=== PATIENT | male | born 1955 | race Caucasian/White ===

== ENCOUNTER 2019-01-07 12:16 | Inpatient (IN) | payer MEDICARE, MEDICAID ==
[~2019-01-07] VITALS: Ht 182.9 cm; Wt 92.5 kg
[~2019-01-07 12:16] MED LIST: KEFLEX500 MG ORAL
--- NOTE | 2019-01-07 12:35 | NUR ---
ED Nurse Note: pt brought by friend and wheelchair assistance provide due to pain on right knee. per pt, "has pain for couple days." pt denies any injury. AAO x4. respirations even and non-labored noted. no open wound noted. will assess more after change to hospital gown. will wait for the further order.
[2019-01-07 13:00] VITALS: BP 134/70
[2019-01-07] MEDS ORDERED: Vancomycin 1.5 GM in NS 275 ML IVPB ONE (13:00)
[2019-01-07] MEDS ORDERED: Cefepime HCl 2 GM in NS 110 ML IV SCH (13:00)
--- NOTE | 2019-01-07 13:00 | NUR ---
ED Nurse Note: will draw the blood after US done.
--- NOTE | 2019-01-07 13:55 | NUR ---
ED Nurse Note: Reports given to DOMENIC Bustillo.
[2019-01-07 14:38] LABS: BASOPHILS % (AUTO) 0.7 % (0.0-2.0); EOSINOPHILS % (AUTO) 0.9 % (0.0-3.0); HEMATOCRIT 35.1 % (42.0-52.0); HEMOGLOBIN 11.9 G/DL (14.2-18.0); LYMPHOCYTES % (AUTO) 16.9 % (20.0-45.0); MEAN CORPUSCULAR VOLUME 89 FL (80-99); MONOCYTES % (AUTO) 10.4 % (1.0-10.0); NEUTROPHILS % (AUTO) 71.2 % (45.0-75.0); PLATELET COUNT 227 K/UL (150-450); RED BLOOD COUNT 3.94 M/UL (4.70-6.10); RED CELL DISTRIBUTION WIDTH 11.7 % (11.6-14.8); WHITE BLOOD COUNT 8.1 K/UL (4.8-10.8)
[2019-01-07 14:50] LABS: ANION GAP 11 mmol/L (5-15); BLOOD UREA NITROGEN 16 mg/dL (7-18); CALCIUM 8.8 MG/DL (8.5-10.1); CARBON DIOXIDE 30 MMOL/L (21-32); CHLORIDE 98 MMOL/L (98-107); CREATININE 1.3 MG/DL (0.55-1.30); SODIUM 139 MMOL/L (136-145)
--- NOTE | 2019-01-07 14:51 | NUR ---
ED Nurse Note: PT NOTED TO BE UNCOOPERATIVE AND STATES HE DOES NOT WANT TO GIVE URINE UNTIL HE GETS SOME WATER TO DRINK. MARKOS ORDERED NPO AND PT WAS INFORMED. MARKOS/PA ALSO OKAY TO GIVE ANTINBIOTICS WITHOUT URINE COLLECTION AT THIS TIME.
[2019-01-07 15:00] VITALS: BP 125/67
[2019-01-07] MEDS ORDERED: Ketorolac 30mg Inj IV ONE (15:00)
[2019-01-07 15:04] LABS: ALANINE AMINOTRANSFERASE 28 U/L (12-78); ALBUMIN 2.8 G/DL (3.4-5.0); ALBUMIN/GLOBULIN RATIO 0.6 (1.0-2.7); ALKALINE PHOSPHATASE 97 U/L (46-116); ASPARTATE AMINO TRANSFERASE 23 U/L (15-37); BILIRUBIN,TOTAL 0.9 MG/DL (0.2-1.0); CKMB 2.4 NG/ML (0.0-3.6); CREATINE KINASE 145 U/L (26-308)
--- NOTE | 2019-01-07 15:11 | Emergency Room Report ---
History of Present Illness General Chief Complaint: Lower Extremity Injury Source: Medical Record (Yadira Tamayo) Present Illness HPI 63-year-old male with history of HIV positive, diabetes, and methamphetamine abuse via IV here complaining of a 10 out of 10 right lower extremity pain that started after injection of IV meth this morning. Bilateral lower extremities have several track duke and abscess formation. Scant amount of cellulitis is noted by laterally and lower extremities. Patient is rating pain 10 out of 10 without radiation. Pulse is 2+ bilaterally. Denies tingling and numbness. Denies fall or injury. Denies chest pain, shortness of breath, palpitation, abdominal pain, nausea vomiting. Has not taken medication for pain. Patient does not appear to be compliant with medication for HIV as well as diabetes. (Yadira Tamayo) Allergies: Coded Allergies: No Known Allergies (Unverified , 03/27/14) Patient History Past Medical History: see triage record Past Surgical History: unable to obtain Pertinent Family History: none Social History: Reports: drug use - meth, intravenous Immunizations: UTD Reviewed Nursing Documentation: PMH: Agreed; PSxH: Agreed (Yadira Tamayo) Nursing Documentation-PMH Past Medical History: No History, Except For Hx Diabetes: Yes Hx Gastrointestinal Problems: No - HEP-C HIV (Yadira Tamayo) Review of Systems All Other Systems: negative except mentioned in HPI (Yadira Tamayo) Physical Exam Vital Signs Date Time Temp Pulse Resp B/P (MAP) Pulse Ox O2 Delivery O2 Flow Rate FiO2 01/07/19 12:26 99.1 108 18 119/71 (87) 95 Room Air Sp02 EP Interpretation: reviewed, abnormal General Appearance: no apparent distress, alert, GCS 15, non-toxic Head: normocephalic, atraumatic Eyes: bilateral eye normal inspection, bilateral eye PERRL ENT: hearing grossly normal, normal pharynx, no angioedema, normal voice Neck: full range of motion, supple/symm/no masses Respiratory: normal inspection, chest non-tender, lungs clear, normal breath sounds, no rhonchi, no respiratory distress, no wheezing, respiratory distress Cardiovascular #1: regular rate, rhythm, no edema, no JVD, no murmur, normal capillary refill Cardiovascular #2: 2+ dorsalis pedis (R), 2+ dorsalis pedis (L) Gastrointestinal: non tender, soft Genitourinary: no CVA tenderness Musculoskeletal: back normal, no calf tenderness, pelvis stable, swelling - Bilateral lower extremities with several abscess formation secondary to track duke Psychiatric: normal inspection, judgement/insight normal Skin: other - cellulitis Bilateral lower extremities, track duke, abscess formation Lymphatic: normal inspection, no adenopathy (Yadira Tamayo) Procedures Critical Care Time Critical Care Time Total critical care time: Approximately 31 minutes Due to a high probability of clinically significant, life threatening deterioration, the patient required the highest level of preparedness to intervene emergently and I personally spent this critical care time directly and personally managing the patient. This critical care time included obtaining a history, examining the patient, pulse oximetry, ordering and reviewing studies , ordering treatments, evaluating response to treatment and updating management plan as needed, frequent reassessment and discussion with other providers as well as arranging for ultimate disposition. This critical to care time was performed to assess and manage the high probability of life-threatening deterioration that could result in multiorgan failure. This critical care time is separate from the separately billable procedures and treating other patients. (Jimmy Rodríguez MD) Medical Decision Making PA Attestation All my diagnosis and treatment plans were reviewed ad discussed with my supervising physician Dr. Perkins (Yadira Tamayo) PA Attestation I participated in over saw the care of this patient along with CHANG Albarran Briefly, this is 63-year-old male with history of HIV, diabetes, IV drug abuse noncompliant with all medication presented for lower extremity pain and swelling. He is found to have a significant cellulitis with an elevated lactate and is receiving sepsis level fluids as well as antibiotics. Patient remains tachycardic though improving with IV fluids. Tetanus was updated for retained foreign body in the right lower extremity. He will be admitted to the telemetry service for further management. (Jimmy Rodríguez MD) Diagnostic Impression: Primary Impression: Sepsis Additional Impressions: Cellulitis Hyperglycemia Retained foreign body ER Course 63-year-old male with history of HIV positive, diabetes, and methamphetamine abuse via IV here complaining of a 10 out of 10 right lower extremity pain that started after injection of IV meth this morning. Bilateral lower extremities have several track duke and abscess formation. Scant amount of cellulitis is noted by laterally and lower extremities. Patient is rating pain 10 out of 10 without radiation. Pulse is 2+ bilaterally. Denies tingling and numbness. Denies fall or injury. Denies chest pain, shortness of breath, palpitation, abdominal pain, nausea vomiting. Has not taken medication for pain. Patient does not appear to be compliant with medication for HIV as well as diabetes. Ddx considered but are not limited to : Cellulitis, DVT, superficial infection, abscess, sepsis Vital signs: are WNL, pt. is afebrile H&PE are most consistent with: Sepsis, cellulitis ORDERS: Sepsis order set, venous duplex, x-ray of lower extremities ED INTERVENTIONS: Cefepime, Bactrim, vancomycin, NS bolus, Toradol Patient was admitted with diagnosis of sepsis, cellulitis to Dr. Chaudhary under supervision of : Mari pt stable at time of admission (Yadira Tamayo) EKG Diagnostic Results Rate: tachycardiac Rhythm: other ST Segments: no acute changes Other Impression No acute ST changes (Yadira Tamayo) Chest X-Ray Diagnostic Results Chest X-Ray Diagnostic Results : Chest X-Ray Ordered: Yes # of Views/Limited/Complete: 1 View Indication: Other EP Interpretation: Yes PA Xray: Interpretation reviewed, by supervising , and agrees with findings. Interpretation: other - Consolidation noted bilaterally Impression: Other - Consolidation noted bilaterally Electronically Signed by: Yadira Gallagher PA-C (Yadira Tamayo) Other X-Ray Diagnostic Results Other X-Ray Diagnostic Results #1: X-Ray ordered: Left tib-fib # of Views/Limited Vs Complete: 3 View Indication: Pain EP Interpretation: Yes PA Xray: Interpretation reviewed, by supervising MD, and agrees with findings. Interpretation: no dislocation, no soft tissue swelling, no fractures, other - Foreign body noted Impression: Other - Foreign body noted Electronically Signed by: Yadira Gallagher PA-C Other X-Ray Diagnostic Results #2: X-Ray ordered: Right tib-fib # of Views/Limited Vs Complete: 3 View Indication: Pain EP Interpretation: Yes PA Xray: Interpretation reviewed, by supervising MD, and agrees with findings. Interpretation: no dislocation, no soft tissue swelling, no fractures, other - fb Impression: Other - fb Electronically Signed by: Yadira Gallagher PA-C Other X-Ray Diagnostic Results #3: X-Ray ordered: Left foot # of Views/Limited Vs Complete: 3 View Indication: Pain EP Interpretation: Yes PA Xray: Interpretation reviewed, by supervising MD, and agrees with findings. Interpretation: no dislocation, no soft tissue swelling, no fractures Impression: No acute disease Electronically Signed by: Yadira Gallagher PA-C Other X-Ray Diagnostic Results #4: X-Ray ordered: Right foot # of Views/Limited Vs Complete: 3 View Indication: Pain EP Interpretation: Yes PA Xray: Interpretation reviewed, by supervising MD, and agrees with findings. Interpretation: no dislocation, no soft tissue swelling, no fractures Impression: No acute disease Electronically Signed by: Yadira Gallagher PA-C (Yadira Tamayo) CT/MRI/US Diagnostic Results CT/MRI/US Diagnostic Results #1: Imaging Test Ordered: Venous duplex right lower extremity Impression Negative for DVT CT/MRI/US Diagnostic Results #2: Imaging Test Ordered: Venous duplex left lower extremity Impression Negative for DVT (Yadira Tamyao) Last Vital Signs Date Time Temp Pulse Resp B/P (MAP) Pulse Ox O2 Delivery O2 Flow Rate FiO2 01/07/19 12:26 99.1 108 18 119/71 (87) 95 Room Air (Yadira Tamayo) Disposition: ADMITTED INPATIENT Condition: Serious Referrals: NON PHYSICIAN (PCP) Yadira Tamayo Jan 07, 2019 15:11 Jimmy Rodríguez MD Jan 07, 2019 16:09
[2019-01-07] MEDS ORDERED: Trimethoprim/Sulfamethoxazole 20 ML in D5W 500ml 550 ML IV ONE ×2 (15:15→17:45)
--- NOTE | 2019-01-07 15:28 | Diagnostic Imaging Report ---
Indication: Bilateral leg pain Technique: Grayscale and duplex images of the bilateral lower extremity veins Comparison: none Findings: Bilaterally, grayscale and duplex images demonstrate no evidence of intraluminal thrombus. Normal phasic Doppler waveforms, demonstrating normal augmentation response common no evidence of valvular insufficiency. Normal compressibility. Impression: Negative for evidence of lower extremity deep venous thrombosis
--- NOTE | 2019-01-07 15:31 | Diagnostic Imaging Report ---
Indication: Leg pain Technique: 2 views of the left tibia and fibula Comparison: none Findings: 12 x 3 mm irregular opacity projects in the the posterior soft tissues of the distal leg. There are vascular calcifications. There are no acute fractures. Impression: Posterior soft tissue opacity, most likely a focus of dystrophic calcification, less likely a small foreign body No other significant abnormality
--- NOTE | 2019-01-07 15:32 | Diagnostic Imaging Report ---
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 No acute fractures. No dislocations. The joint spaces are preserved. There is mild pes cavus. Small calcaneal spur noted. Impression: No acute bony trauma
--- NOTE | 2019-01-07 15:33 | Diagnostic Imaging Report ---
Indication: Trauma, right knee pain Technique: 3 views of the right knee Comparison: None Findings: No definite suprapatellar effusion. No acute fractures. No dislocations. Joint spaces are preserved Impression: Negative
--- NOTE | 2019-01-07 15:36 | Diagnostic Imaging Report ---
Indication: Right lower leg pain Technique: 2 views of the right tibia and fibula Comparison: none Findings: Linear metallic foreign body projects in the superficial subcutaneous fat of the lateral calf. No acute fractures. No dislocations. No soft tissue gas Impression: Metallic foreign body in the lateral superficial soft tissues No acute bony trauma Findings discussed by phone with nurse practitioner Yadira in the emergency room at the time of interpretation
--- NOTE | 2019-01-07 15:38 | Diagnostic Imaging Report ---
Indication: Right foot pain Technique: 3 views right foot Comparison: none Findings: No acute fractures. No dislocations. The joint spaces are preserved. No radiopaque foreign body. No definite soft tissue gas. There are vascular calcifications Impression: No acute process
[2019-01-07] MEDS ORDERED: Tetanus/Diptheria/Pertussis IM ONE (16:15)
--- NOTE | 2019-01-07 16:25 | Diagnostic Imaging Report ---
Indication: Chest pain Technique: One view of the chest Comparison: none Findings: Is right perihilar atelectasis. Lungs and pleural spaces are otherwise clear. The heart size is normal. No significant interim change Impression: No acute process
[2019-01-07 17:00] VITALS: BP 106/75
[2019-01-07] MEDS ORDERED: Sodium Chloride 2,800 ML IVLG ONE (17:00)
--- NOTE | 2019-01-07 17:27 | NUR ---
ED Nurse Note: REPEAT LACTIC ACID SPECIMEN SENT.
--- NOTE | 2019-01-07 18:25 | NUR ---
ED Nurse Note: COLLECTED URINE THEN SENT.
[2019-01-07 18:49] LABS: APPEARANCE,URINE CLEAR; BILIRUBIN, URINE NEGATIVE (NEGATIVE); GLUCOSE, URINE (UA) 4+ (NEGATIVE); KETONES,URINE 1+ (NEGATIVE); LEUKOCYTE ESTERASE ,URINE NEGATIVE (NEGATIVE); NITRITE,URINE NEGATIVE (NEGATIVE); PH,URINE 6 (4.5-8.0); PROTEIN,URINE 3+ (NEGATIVE); UROBILINOGEN,URINE 4 MG/DL (0.0-1.0)
[2019-01-07 18:50] LABS: COLOR,URINE YELLOW
--- NOTE | 2019-01-07 19:02 | NUR ---
HAND-OFF: Report given to PRIETO SHETH.
--- NOTE | 2019-01-07 19:12 | NUR ---
ED Nurse Note: pt was brought up to tele rm 216 accompanied by RN and supervisor pyrotechnic loading with monitor box via [employer] in stable condition. IV site is intact. Report was given to DOMENIC Li. inventory signed off
--- NOTE | 2019-01-07 19:15 | NUR ---
NURSE NOTES: Received pt from ED via gurney. Pt transferred to [facility] without any incident. Pt is A/Ox3. [place] pt to room, unit, and hospital policies. Received report from DOMENIC Li. addictions counselor is in placed, IV site intact, asymptomatic, and patent. Bed is in the lowest position and locked. Call light within reach. Belongings list checked and accounted for. No signs/symptoms of acute distress noted at this time. Will contact Dr. Chaudhary for orders.
--- NOTE | 2019-01-07 19:57 | NUR ---
NURSE NOTES: Received orders from Dr. Mcintosh. Will note and carry out.
[2019-01-07 20:00] VITALS: BP 115/69
[2019-01-07] MEDS ORDERED: Miralax 17gm pkt ORAL PRN (20:00)
[2019-01-07] MEDS ORDERED: Albuterol/Ipratropium 3ml neb HHN PRN (20:00)
[2019-01-07] MEDS ORDERED: Nitroglycerin Subl 0.4mg tab SL PRN (20:00)
[2019-01-07] MEDS ORDERED: Morphine Sulfate 2mg/ml Inj(IV/IM USE ONLY) IVP PRN (20:00)
--- NOTE | 2019-01-07 20:10 | NUR ---
NURSE NOTES: Cancelled venous duplex scan for bilateral lower extremities ordered by Dr. Mcintosh. Vascular director geophysical laboratory confirmed that scan has already been done. Negative for DVT in lower extremities. Results in pt's chart.
[2019-01-07] MEDS: Heparin 5000 units/ml inj SUBQ SCH (21:45)
--- NOTE | 2019-01-07 22:35 | NUR ---
NURSE NOTES: Pt refused to be swab for VRE, CRE, and MRSA at this time. Pt said possibly tomorrow after breakfast. Will endorse to dayshift RN.
[2019-01-08] VITALS: BP 110/70
[2019-01-08] MEDS: Cefepime HCl 2 GM in D5W 110 ML IV SCH ×2 (03:25→15:57)
[2019-01-08 04:00] VITALS: BP 119/86
[2019-01-08] MEDS: Vancomycin 1 GM in D5W 275 ML IVPB SCH ×2 (04:46→16:44)
[2019-01-08 06:50] LABS: BASOPHILS % (AUTO) 0.7 % (0.0-2.0); EOSINOPHILS % (AUTO) 3.7 % (0.0-3.0); HEMATOCRIT 32.9 % (42.0-52.0); HEMOGLOBIN 11.3 G/DL (14.2-18.0); LYMPHOCYTES % (AUTO) 13.5 % (20.0-45.0); MEAN CORPUSCULAR VOLUME 89 FL (80-99); MONOCYTES % (AUTO) 8.7 % (1.0-10.0); NEUTROPHILS % (AUTO) 73.5 % (45.0-75.0); PLATELET COUNT 184 K/UL (150-450); RED CELL DISTRIBUTION WIDTH 11.8 % (11.6-14.8); WHITE BLOOD COUNT 4.5 K/UL (4.8-10.8)
--- NOTE | 2019-01-08 07:04 | NUR ---
NURSE NOTES: Informed Dr. Mcintosh that pt is diabetic and asked for a toxicology screening on pt.
--- NOTE | 2019-01-08 07:15 | NUR ---
NURSE NOTES: Pt is AAOx3. Patient is cooperative. patient is breathing even and unlabored on room air. monitoring specialist is placed. IV site intact, asymptomatic, and patent. Bed is in the lowest position and locked. Call light within reach. No signs/symptoms of acute distress noted at this time. Will continue plan of care.
--- NOTE | 2019-01-08 07:15 | NUR ---
NURSE NOTES: Received orders for toxicology and Novolog sliding scale. Will note and carry out.
[2019-01-08 07:25] LABS: ALANINE AMINOTRANSFERASE 20 U/L (12-78); ALBUMIN 2.2 G/DL (3.4-5.0); ALBUMIN/GLOBULIN RATIO 0.5 (1.0-2.7); ALKALINE PHOSPHATASE 87 U/L (46-116); ANION GAP 3 mmol/L (5-15); ASPARTATE AMINO TRANSFERASE 20 U/L (15-37); BILIRUBIN,TOTAL 0.7 MG/DL (0.2-1.0); BLOOD UREA NITROGEN 11 mg/dL (7-18); CARBON DIOXIDE 29 MMOL/L (21-32); CHLORIDE 102 MMOL/L (98-107); CREATININE 1.1 MG/DL (0.55-1.30); POTASSIUM 3.7 MMOL/L (3.5-5.1); SODIUM 134 MMOL/L (136-145)
--- NOTE | 2019-01-08 07:54 | NUR ---
HAND-OFF: Report given to DOMENIC Carvalho. Plan of care endorsed.
[2019-01-08 08:00] VITALS: BP 137/72
[2019-01-08] MEDS: Heparin 5000 units/ml inj SUBQ SCH ×2 (08:39→20:39)
--- NOTE | 2019-01-08 10:30 | NUR ---
NURSE NOTES: Patient was concerned about a missing phone. Made attempt to look through belonging checklist and patient's belongings. No mention of cellphone in checklist and no cellphone found in patient belonging. Spoke with ER charge nurse and security regarding missing phone. None were found. Patient states he wants to speak with the charge nurse. Charge nurse was unavailable at the time. Notified Anastasiia, nursing supervisor painting shipyard.
--- NOTE | 2019-01-08 11:13 | NUR ---
CASE MANAGEMENT:REVIEW 63 YR OLD MALE PRESENTED TO ER BY FRIEND CC;RT KNEE PAIN X2 DAYS SI: SEPSIS. CELLULITIS. HYPERGLYCEMIA RETAINED FOREIGN BODY 99.1 108 18 119/71 95% ON RA GLUCOSE+336 URINE(+) AMPHETAMINES IS: IV VANCOMYCIN IV CEFEPIME 1L NS BOLUS XRAY BOTH RT AND LT LEG AND FOOT CXR VENOUS DUPLEX : TO TELEMETRY UNIT DCP; FROM HOME
--- NOTE | 2019-01-08 11:16 | NUR ---
Social Work This Sw received a Sw notification to see patient. This SW met with patient who automatically started yelling upon approach "I want my cell phone...they lost my cell phone!" Patient explains he had also lost his cell phone at [facility] and two at [facility]. It is questionable whether patient is a good historian regarding his phone. Patient explains he lives alone in an apartment who two flights of steps. Patient explains he was walking to the bus, when his knee "gave out" and he was not able to walk. Patient explains his friends picked him and transported him to the hospital. Pending progress with P.T and nursing at this time. Patient appears to show labile mood: angry, then calm and appropriate. Patient admits to anxiety and depression, currently taking Wellbutrin. Psych consult recommended, the nurse will obtain orders for Psych to see. Patient explains he has a psychiatrist in [place] (with Dr. Luu: [phone] [place] [address]). Patient explains he does not have any family to assist after discharge. Patient reiterating about loosing his phone, while he also explains he wants more information why he cannot use his knee. Pending progress; patient does not have any DME at home. SW to follow as needed.
--- NOTE | 2019-01-08 11:39 | NUR ---
NURSING LOCAL AREA NETWORK ADMINISTRATOR NOTE: Patient requested to speak to the Nursing Digital Asset Manager regarding a lost cell phone. Spoke to patient at bedside and he stated "someone stole my I-Phone last night". I asked patient when the last time he remembered seeing his phone and he replied "In ER last night". Patient describes the phone as a "I-Phone 6". Patient started yelling, "Dammit! How could anyone steal a phone from someone helpless, with no money to buy another one?" I offered to look through his belongings bags at bedside and he agreed to let me do so. A cell phone was not located, but a pack of cigarettes and career resource specialist was found. Patient also had a wallet with over $200. I had Charge Nurse Guillermo come to patient room and we told him together that he would be assuming responsibility for his jamison if he doesn't want us to secure it in the safe. Patient refused to let us removed his cigarette and career resource specialist. Stated "I won't smoke". Advised patient that a cell phone is not listed on his belongings inventory list. Advised patient that I will contact ER to see if his phone was left there. I spoke to Charge Nurse Amalia in ER and she stated there was no cell phone left in ER. Guillermo, Charge Nurse today, admitted patient yesterday, and states there was no phone in his belongings. Notified Security about missing phone and cigarettes/career resource specialist.
--- NOTE | 2019-01-08 11:41 | Consultation ---
History of Present Illness General Date patient seen: Jan 08, 2019 Chief Complaint: Lower Extremity Injury Present Illness HPI 63-year-old male with history of HIV, diabetes, methamphetamine abuse via IV presented to ER complaining of a 10 out of 10 right lower extremity pain that started after injection of IV meth this morning. Bilateral lower extremities have several track duke and abscess formation. Pt was tachycardic in ER and is admitted to telemetry. He is c/o of pain in knees, wants to smoke and is agitated about loosing his cell phone Allergies: Coded Allergies: No Known Allergies (Unverified , 03/27/14) Medication History No Active Prescriptions or Reported Meds Patient History Healthcare decision maker Resuscitation status Full Code Advanced Directive on File Past Medical/Surgical History Past Medical/Surgical History: (1) HIV (human immunodeficiency virus infection) (2) Diabetes mellitus (3) Noncompliance Review of Systems All Other Systems: negative except mentioned in HPI Physical Exam General Appearance: WD/WN Lines, tubes and drains: peripheral HEENT: normocephalic, atraumatic Neck: non-tender, normal alignment Respiratory/Chest: chest wall non-tender, lungs clear Cardiovascular/Chest: normal peripheral pulses, normal rate Abdomen: normal bowel sounds, non tender Extremities: normal range of motion Last 24 Hour Vital Signs Date Time Temp Pulse Resp B/P (MAP) Pulse Ox O2 Delivery O2 Flow Rate FiO2 01/08/19 09:36 98 22 95 Room Air 21 01/08/19 09:04 98.1 01/08/19 08:00 96.7 80 19 137/72 (93) 96 01/08/19 04:00 98.1 97 19 119/86 (97) 96 01/08/19 04:00 92 01/08/19 00:00 96 01/08/19 00:00 98.2 100 20 110/70 (83) 95 01/07/19 20:00 98.2 94 22 115/69 (84) 97 01/07/19 20:00 116 01/07/19 19:12 98.0 84 19 132/84 97 Room Air 01/07/19 19:00 Room Air 01/07/19 17:00 99.1 135 20 106/75 100 Room Air 01/07/19 15:28 99.1 01/07/19 15:00 98.9 120 16 125/67 98 Room Air 01/07/19 13:00 99.1 128 15 134/70 99 Room Air 01/07/19 12:26 99.1 108 18 119/71 (87) 95 Room Air Intake and Output 01/07/19 01/08/19 19:00 07:00 Intake Total 2137.5 ml 0 ml Output Total 200 ml Balance 2137.5 ml -200 ml Intake Oral 0 ml 0 ml IV Total 2137.5 ml Output Urine Total 200 ml Laboratory Tests Test 01/07/19 14:15 01/07/19 17:15 01/07/19 18:15 01/08/19 06:30 White Blood Count 8.1 K/UL (4.8-10.8) 4.5 K/UL (4.8-10.8) L Red Blood Count 3.94 M/UL (4.70-6.10) L 3.70 M/UL (4.70-6.10) L Hemoglobin 11.9 G/DL (14.2-18.0) L 11.3 G/DL (14.2-18.0) L Hematocrit 35.1 % (42.0-52.0) L 32.9 % (42.0-52.0) L Mean Corpuscular Volume 89 FL (80-99) 89 FL (80-99) Mean Corpuscular Hemoglobin 30.3 PG (27.0-31.0) 30.6 PG (27.0-31.0) Mean Corpuscular Hemoglobin Concent 34.0 G/DL (32.0-36.0) 34.4 G/DL (32.0-36.0) Red Cell Distribution Width 11.7 % (11.6-14.8) 11.8 % (11.6-14.8) Platelet Count 227 K/UL (150-450) 184 K/UL (150-450) Mean Platelet Volume 5.0 FL (6.5-10.1) L 4.9 FL (6.5-10.1) L Neutrophils (%) (Auto) 71.2 % (45.0-75.0) 73.5 % (45.0-75.0) Lymphocytes (%) (Auto) 16.9 % (20.0-45.0) L 13.5 % (20.0-45.0) L Monocytes (%) (Auto) 10.4 % (1.0-10.0) H 8.7 % (1.0-10.0) Eosinophils (%) (Auto) 0.9 % (0.0-3.0) 3.7 % (0.0-3.0) H Basophils (%) (Auto) 0.7 % (0.0-2.0) 0.7 % (0.0-2.0) Prothrombin Time 10.8 SEC (9.30-11.50) Prothromb Time International Ratio 1.0 (0.9-1.1) Activated Partial Thromboplast Time 29 SEC (23-33) Sodium Level 139 MMOL/L (136-145) 134 MMOL/L (136-145) L Potassium Level 4.0 MMOL/L (3.5-5.1) 3.7 MMOL/L (3.5-5.1) Chloride Level 98 MMOL/L (98-107) 102 MMOL/L (98-107) Carbon Dioxide Level 30 MMOL/L (21-32) 29 MMOL/L (21-32) Anion Gap 11 mmol/L (5-15) 3 mmol/L (5-15) L Blood Urea Nitrogen 16 mg/dL (7-18) 11 mg/dL (7-18) Creatinine 1.3 MG/DL (0.55-1.30) 1.1 MG/DL (0.55-1.30) Estimat Glomerular Filtration Rate 56.1 mL/min (>60) > 60 mL/min (>60) Glucose Level 336 MG/DL (74-106) H 283 MG/DL (74-106) H Lactic Acid Level 3.90 mmol/L (0.4-2.0) H 1.20 mmol/L (0.66-2.22) Calcium Level 8.8 MG/DL (8.5-10.1) 8.0 MG/DL (8.5-10.1) L Total Bilirubin 0.9 MG/DL (0.2-1.0) 0.7 MG/DL (0.2-1.0) Aspartate Amino Transf (AST/SGOT) 23 U/L (15-37) 20 U/L (15-37) Alanine Aminotransferase (ALT/SGPT) 28 U/L (12-78) 20 U/L (12-78) Alkaline Phosphatase 97 U/L (46-116) 87 U/L (46-116) Total Creatine Kinase 145 U/L (26-308) Creatine Kinase MB 2.4 NG/ML (0.0-3.6) Creatine Kinase MB Relative Index 1.6 Troponin I 0.000 ng/mL (0.000-0.056) Pro-B-Type Natriuretic Peptide 306 pg/mL (0-125) H Total Protein 7.3 G/DL (6.4-8.2) 6.4 G/DL (6.4-8.2) Albumin 2.8 G/DL (3.4-5.0) L 2.2 G/DL (3.4-5.0) L Globulin 4.5 g/dL 4.2 g/dL Albumin/Globulin Ratio 0.6 (1.0-2.7) L 0.5 (1.0-2.7) L Urine Color Yellow Urine Appearance Clear Urine pH 6 (4.5-8.0) Urine Specific Ideal 1.015 (1.005-1.035) Urine Protein 3+ (NEGATIVE) H Urine Glucose (UA) 4+ (NEGATIVE) H Urine Ketones 1+ (NEGATIVE) H Urine Blood 1+ (NEGATIVE) H Urine Nitrite Negative (NEGATIVE) Urine Bilirubin Negative (NEGATIVE) Urine Urobilinogen 4 MG/DL (0.0-1.0) H Urine Leukocyte Esterase Negative (NEGATIVE) Urine RBC 0-2 /HPF (0 - 0) H Urine WBC 0-2 /HPF (0 - 0) Urine Squamous Epithelial Cells None /LPF (NONE/OCC) Urine Bacteria None /HPF (NONE) Test 01/08/19 08:40 Urine Opiates Screen Negative (NEGATIVE) Urine Barbiturates Screen Negative (NEGATIVE) Phencyclidine (PCP) Screen Negative (NEGATIVE) Urine Amphetamines Screen Positive (NEGATIVE) H Urine Benzodiazepines Screen Negative (NEGATIVE) Urine Cocaine Screen Negative (NEGATIVE) Urine Marijuana (THC) Screen Negative (NEGATIVE) Height (Feet): 6 Height (Inches): 0.00 Weight (Pounds): 205 Medications Current Medications Medications (Trade) Dose Ordered Sig/Naheed Route PRN Reason Start Time Stop Time Status Last Admin Dose Admin Acetaminophen (Tylenol) 650 mg Q4H PRN ORAL fever 01/07/19 20:00 02/06/19 19:59 Albuterol/ Ipratropium (Albuterol/ Ipratropium) 3 ml Q4H PRN HHN Shortness of Breath 01/07/19 20:00 01/12/19 19:59 Cefepime HCl 2 gm/ Dextrose 110 ml @ 220 mls/hr Q12HR@0300,1500 IV 01/08/19 03:00 01/15/19 02:59 01/08/19 03:25 Dextrose (Dextrose 50%) 25 ml Q30M PRN IV Hypoglycemia 01/07/19 20:00 02/06/19 19:59 Dextrose (Dextrose 50%) 50 ml Q30M PRN IV Hypoglycemia 01/07/19 20:00 02/06/19 19:59 Heparin Sodium (Porcine) (Heparin 5000 units/ml) 5,000 units EVERY 12 HOURS SUBQ 01/07/19 21:00 02/06/19 20:59 01/08/19 08:39 Insulin Aspart (NovoLOG) BEFORE MEALS AND HS SUBQ 01/08/19 11:30 02/07/19 11:29 Morphine Sulfate (Morphine Sulfate) 4 mg Q4H PRN IVP Moderate Pain (Pain Scale 4-6) 01/08/19 12:00 01/14/19 19:59 Nitroglycerin (Ntg) 0.4 mg Q5M PRN SL Prn Chest Pain 01/07/19 20:00 02/06/19 19:59 Ondansetron HCl (Zofran) 4 mg Q6H PRN IVP Nausea & Vomiting 01/07/19 20:00 02/06/19 19:59 Polyethylene Glycol (Miralax) 17 gm DAILYPRN PRN ORAL Constipation 01/07/19 20:00 02/06/19 19:59 Quetiapine Fumarate (SEROquel) 50 mg Q12HR ORAL 01/08/19 11:30 02/07/19 11:29 Temazepam (Restoril) 15 mg HSPRN PRN ORAL Insomnia 01/07/19 20:00 01/14/19 19:59 Vancomycin HCl (Vanco rx to dose) 1 ea DAILY PRN MISC . 01/07/19 20:15 02/06/19 20:14 Vancomycin HCl 1 gm/Dextrose 275 ml @ 183.3 mls/ hr Q12HR@0400,1600 IVPB 01/08/19 04:00 01/13/19 03:59 01/08/19 04:46 Assessment/Plan Problem List: (1) Phlebitis ICD Codes: I80.9 - Phlebitisand thrombophlebitis of unspecified site SNOMED: 76805501 (2) Cellulitis ICD Codes: L03.90 - Cellulitis, unspecified SNOMED: 184028927 (3) Noncompliance ICD Codes: Z91.19 - Patient's noncompliance with other medical treatment and regimen SNOMED: 2446062 (4) HIV (human immunodeficiency virus infection) ICD Codes: B20 - Human immunodeficiency virus [HIV] disease SNOMED: 08126789 (5) Diabetes mellitus ICD Codes: E11.9 - Type 2 diabetes mellitus without complications SNOMED: 32769987 (6) Substance abuse ICD Codes: F19.10 - Other psychoactive substance abuse, uncomplicated SNOMED: 65321152 (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
[2019-01-08 12:00] VITALS: BP 138/82
[2019-01-08] MEDS: NovoLOG Insulin Flexpen SUBQ SCH ×3 (12:46→20:40)
[2019-01-08] MEDS: Morphine Sulfate 4mg/ml Inj (IV USE ONLY) IVP PRN ×3 (12:59→20:49)
--- NOTE | 2019-01-08 15:16 | History & Physical ---
History and Physical History & Physicial Jonathon Chaudhary MD Jan 08, 2019 15:16
[2019-01-08 16:00] VITALS: BP 119/81
--- NOTE | 2019-01-08 19:10 | NUR ---
HAND-OFF: Report given to DOMENIC Salguero.
--- NOTE | 2019-01-08 19:11 | NUR ---
NURSE NOTES: Got report from Deven SHETH. Pt in stable condition. Denies any pain. No s/s of distress or discomfort noted. Pt resting in bed comfortably. Bed in low and locked position, call light within reach bedside table within reach. Continue to monitor.
--- NOTE | 2019-01-08 19:20 | Consultation ---
History of Present Illness General Date patient seen: Jan 08, 2019 Chief Complaint: Lower Extremity Injury Present Illness HPI 63 y/o M with hx of HIV, Dm2, Hep C, IVDA (meth abuse) presented to ED on 01/07 RLE pain that started after IV injection of meth the day of admission. In the ED patient was tachycardic and was admitted to telemetry. He also complains of knee pain. RLE pain described as 10/10, no radiating. Denied CP, SOB, abd pain, n/v. Allergies: Coded Allergies: No Known Allergies (Unverified , 03/27/14) Medication History No Active Prescriptions or Reported Meds Patient History Healthcare decision maker Resuscitation status Full Code Advanced Directive on File Patient History Narrative Pmhx: as above Shx: reviewed Fhx: non contributory Review of Systems All Other Systems: negative except mentioned in HPI Physical Exam Physical Exam Narrative General Appearance: WD/WN Lines, tubes and drains: peripheral HEENT: normocephalic, atraumatic Neck: non-tender, normal alignment Respiratory/Chest: chest wall non-tender, lungs clear Cardiovascular/Chest: normal peripheral pulses, normal rate Abdomen: normal bowel sounds, non tender Extremities: normal range of motion Last 24 Hour Vital Signs Date Time Temp Pulse Resp B/P (MAP) Pulse Ox O2 Delivery O2 Flow Rate FiO2 01/08/19 17:23 98.6 01/08/19 16:00 98.6 86 20 119/81 (94) 94 01/08/19 15:48 100 01/08/19 13:27 Room Air 01/08/19 12:00 97.8 76 20 138/82 (100) 94 01/08/19 11:28 106 01/08/19 09:36 98 22 95 Room Air 21 01/08/19 09:04 98.1 01/08/19 09:00 Room Air 01/08/19 08:14 98 01/08/19 08:00 96.7 80 19 137/72 (93) 96 01/08/19 04:00 98.1 97 19 119/86 (97) 96 01/08/19 04:00 92 01/08/19 00:00 96 01/08/19 00:00 98.2 100 20 110/70 (83) 95 01/07/19 20:00 98.2 94 22 115/69 (84) 97 01/07/19 20:00 116 01/07/19 19:12 98.0 84 19 132/84 97 Room Air Intake and Output 01/07/19 01/08/19 18:59 06:59 Intake Total 2137.5 ml 0 ml Output Total 200 ml Balance 2137.5 ml -200 ml Intake Oral 0 ml 0 ml IV Total 2137.5 ml Output Urine Total 200 ml Laboratory Tests Test 01/08/19 06:30 01/08/19 08:40 White Blood Count 4.5 K/UL (4.8-10.8) L Red Blood Count 3.70 M/UL (4.70-6.10) L Hemoglobin 11.3 G/DL (14.2-18.0) L Hematocrit 32.9 % (42.0-52.0) L Mean Corpuscular Volume 89 FL (80-99) Mean Corpuscular Hemoglobin 30.6 PG (27.0-31.0) Mean Corpuscular Hemoglobin Concent 34.4 G/DL (32.0-36.0) Red Cell Distribution Width 11.8 % (11.6-14.8) Platelet Count 184 K/UL (150-450) Mean Platelet Volume 4.9 FL (6.5-10.1) L Neutrophils (%) (Auto) 73.5 % (45.0-75.0) Lymphocytes (%) (Auto) 13.5 % (20.0-45.0) L Monocytes (%) (Auto) 8.7 % (1.0-10.0) Eosinophils (%) (Auto) 3.7 % (0.0-3.0) H Basophils (%) (Auto) 0.7 % (0.0-2.0) Sodium Level 134 MMOL/L (136-145) L Potassium Level 3.7 MMOL/L (3.5-5.1) Chloride Level 102 MMOL/L (98-107) Carbon Dioxide Level 29 MMOL/L (21-32) Anion Gap 3 mmol/L (5-15) L Blood Urea Nitrogen 11 mg/dL (7-18) Creatinine 1.1 MG/DL (0.55-1.30) Estimat Glomerular Filtration Rate > 60 mL/min (>60) Glucose Level 283 MG/DL (74-106) H Calcium Level 8.0 MG/DL (8.5-10.1) L Total Bilirubin 0.7 MG/DL (0.2-1.0) Aspartate Amino Transf (AST/SGOT) 20 U/L (15-37) Alanine Aminotransferase (ALT/SGPT) 20 U/L (12-78) Alkaline Phosphatase 87 U/L (46-116) Total Protein 6.4 G/DL (6.4-8.2) Albumin 2.2 G/DL (3.4-5.0) L Globulin 4.2 g/dL Albumin/Globulin Ratio 0.5 (1.0-2.7) L Urine Opiates Screen Negative (NEGATIVE) Urine Barbiturates Screen Negative (NEGATIVE) Phencyclidine (PCP) Screen Negative (NEGATIVE) Urine Amphetamines Screen Positive (NEGATIVE) H Urine Benzodiazepines Screen Negative (NEGATIVE) Urine Cocaine Screen Negative (NEGATIVE) Urine Marijuana (THC) Screen Negative (NEGATIVE) Height (Feet): 6 Height (Inches): 0.00 Weight (Pounds): 205 Medications Current Medications Medications (Trade) Dose Ordered Sig/Naheed Route PRN Reason Start Time Stop Time Status Last Admin Dose Admin Acetaminophen (Tylenol) 650 mg Q4H PRN ORAL fever 01/07/19 20:00 02/06/19 19:59 Albuterol/ Ipratropium (Albuterol/ Ipratropium) 3 ml Q4H PRN HHN Shortness of Breath 01/07/19 20:00 01/12/19 19:59 Cefepime HCl 2 gm/ Dextrose 110 ml @ 220 mls/hr Q12HR@0300,1500 IV 01/08/19 03:00 01/15/19 02:59 01/08/19 15:57 Dextrose (Dextrose 50%) 25 ml Q30M PRN IV Hypoglycemia 01/07/19 20:00 02/06/19 19:59 Dextrose (Dextrose 50%) 50 ml Q30M PRN IV Hypoglycemia 01/07/19 20:00 02/06/19 19:59 Heparin Sodium (Porcine) (Heparin 5000 units/ml) 5,000 units EVERY 12 HOURS SUBQ 01/07/19 21:00 02/06/19 20:59 01/08/19 08:39 Insulin Aspart (NovoLOG) BEFORE MEALS AND HS SUBQ 01/08/19 11:30 02/07/19 11:29 01/08/19 17:00 Morphine Sulfate (Morphine Sulfate) 4 mg Q4H PRN IVP Moderate Pain (Pain Scale 4-6) 01/08/19 12:00 01/14/19 19:59 01/08/19 16:53 Nitroglycerin (Ntg) 0.4 mg Q5M PRN SL Prn Chest Pain 01/07/19 20:00 02/06/19 19:59 Ondansetron HCl (Zofran) 4 mg Q6H PRN IVP Nausea & Vomiting 01/07/19 20:00 02/06/19 19:59 Polyethylene Glycol (Miralax) 17 gm DAILYPRN PRN ORAL Constipation 01/07/19 20:00 02/06/19 19:59 Quetiapine Fumarate (SEROquel) 50 mg Q12HR ORAL 01/08/19 11:30 02/07/19 11:29 01/08/19 12:39 Temazepam (Restoril) 15 mg HSPRN PRN ORAL Insomnia 01/07/19 20:00 01/14/19 19:59 Vancomycin HCl (Vanco rx to dose) 1 ea DAILY PRN MISC . 01/07/19 20:15 02/06/19 20:14 Vancomycin HCl 1 gm/Dextrose 275 ml @ 183.3 mls/ hr Q12HR@0400,1600 IVPB 01/08/19 04:00 01/13/19 03:59 01/08/19 16:44 Assessment/Plan Assessment/Plan: Abx: IV Vancomcyin 01/07- Cefepime 01/07- Assessment: R knee pain, R leg cellulitis- r/o septic arthitis, r/o abscess -Xray R tibia/fibula: Metallic foreign body in the lateral superficial soft tissues. No acute bony trauma -xray L tibi/fibula: Posterior soft tissue opacity, most likely a focus of dystrophic calcification, less likely a small foreign body. No other significant abnormality -R knee xray: No definite suprapatellar effusion. No acute fractures. No dislocations. Joint spaces are preserved -V. dupplex: no DVT -B/l foot xray: no acute process Afebrile No leukocytosis -CXR: no acute findings HIV- Dx on 1985- currently on Symtuza and Tivicay -last HIV VL 40 and CD4 300s (per patient about 1.5 month ago) -has been on treatment for 30 years Dm2 Hep C IVDA (meth abuse) -uDS + amphetamines Plan: -Continue empiric IV Vancomycin and Cefepime #2 -f/u cx -Monitor CBC/CMP, temperatures -MRI R knee and R leg -Continue ARV Thank you for this consultation. Will continue to follow along with you. Discussed with Mara Kebede M.D. Jan 08, 2019 19:20
[2019-01-08 20:00] VITALS: BP 115/68
--- NOTE | 2019-01-08 21:45 | History and Physical Report ---
DATE OF ADMISSION: 01/07/2019 CHIEF COMPLAINT: The right lower extremity redness and swelling. HISTORY OF PRESENT ILLNESS: This is a 63-year-old gentleman with past medical history significant for HIV/AIDS diagnosed in 2001, diabetes type 2, hepatitis C positive over 20 years status post treatment in remission, and history of IV drug abuse with methamphetamine, who has presented to the emergency room complaining about the right leg redness and swelling. The patient was noted to have several track duke and abscess formation in the legs. Had a recent admission to [facility] about 6 weeks ago due to right leg infection and was treated and he has been homeless and walking barefoot for the past three days. Shortly after initial evaluation in the emergency, the patient was admitted to the hospital with the right lower extremity cellulitis. PAST MEDICAL HISTORY/PAST SURGICAL HISTORY: As above. History of HIV/AIDS diagnosed in 2001, diabetes type 2, hepatitis C positive in remission status post treatment, and history of IV drug abuse. 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 MEDICATIONS AT HOME: Please refer to medication reconciliation. ALLERGIES: No known drug allergies. SOCIAL HISTORY: The patient has a long history of methamphetamine IV drug abuse. He smokes 4 to 10 cigarettes a day. Denies any alcohol abuse. FAMILY HISTORY: Mother with history of coronary artery disease with angioplasty. Father with history of kidney cancer. Sister has diabetes type 2. REVIEW OF SYSTEMS: Mostly as above. Denies any dysuria or frequency. Complained about occasional cough. Denies any hemoptysis or hematochezia. Denies any bright red blood per rectum. Denies any loss of consciousness. Complained about right leg pain. PHYSICAL EXAMINATION: VITAL SIGNS: On admission, temperature 99.1, pulse of 108, respiration 18, and blood pressure 119/71. GENERAL: The patient is awake, responsive, and in no acute distress. HEAD AND NECK: Pupils are reactive to light. Extraocular movements intact. NECK: Supple. No JVD. The patient had a surgical scar from the old tracheostomy. It was noted and well healed. LUNGS: Bilateral air entry. No wheezing or rhonchi. HEART: Reveals S1, S2. Distant heart sounds. No murmurs. No gallops. ABDOMEN: Soft, nondistended, and nontender. Bowel sounds present. EXTREMITIES: No cyanosis or clubbing. The right leg has edema and erythema. A track urszula was noted in the lower extremities NEUROLOGIC: Cranial nerves II through XII is grossly intact. Motor is 5/5 in all extremities. Gait was not assessed due to the patient's status. PSYCHIATRIC: Mood and affect is intact. RECTAL/GENITOURINARY: Refused and deferred. LABORATORY DATA: On admission, PT of 10, INR 1.0, and PTT of 29. Urine drug screen is significant for amphetamine. Sodium 139, potassium 4.0, chloride 98, bicarbonate 30, BUN 16, creatinine 1.3, glucose is 336. Troponin 0.00. ProBNP of 306. Albumin is a 2.8. The patient's lactic acid is 3.90, second one is 1.20. WBC of 8.1, hemoglobin of 11, hematocrit 35, and platelets is 227,000. The patient had a x-ray of the right knee negative. Duplex of the lower extremity, negative for the DVT. X-ray of the tibia-fibula, metallic foreign body in the lateral superficial soft tissue. No acute bony trauma. Chest x-ray, no acute process. ASSESSMENT: 1. Cellulitis of the right lower extremity. 2. History of HIV/AIDS. 3. History of intravenous drug abuse. 4. Diabetes type 2, uncontrolled. 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 7. Hepatitis C positive, currently in remission. 8. Dehydration. PLAN: 1. Admit the patient to telemetry. 2. We will follow up laboratory and cultures. 3. ID consultation. 4. Monitor blood glucose level closely. 5. Code status is Full Code. 6. DVT prophylaxis with heparin subcutaneous. 7. Broad-spectrum antibiotic with vancomycin and cefepime. Jonathon Chaudhary M.D. DR: JUAN DIEGO JOB#: [id number] CC:
[2019-01-09] VITALS: BP 119/73
[2019-01-09] MEDS: Cefepime HCl 2 GM in D5W 110 ML IV SCH ×2 (03:00→15:17)
[2019-01-09] MEDS: Morphine Sulfate 4mg/ml Inj (IV USE ONLY) IVP PRN ×2 (03:46→09:04)
[2019-01-09 04:00] VITALS: BP 121/71
[2019-01-09] MEDS: Vancomycin 1 GM in D5W 275 ML IVPB SCH ×2 (04:00→16:13)
[2019-01-09] MEDS: NovoLOG Insulin Flexpen SUBQ SCH ×4 (06:03→21:43)
--- NOTE | 2019-01-09 07:00 | NUR ---
HAND-OFF: Report given to Link SHETH. Endorsed plan of care.
[2019-01-09 08:07] VITALS: BP 123/81
--- NOTE | 2019-01-09 08:53 | NUR ---
NURSE NOTES: Received report from DOMENIC Salguero. patient appeared somewhat anxious at change of shift bedside eval. Stated he wanted his pain meds as soon as possible (due at 9am per emar). Cooperative affect. Bed in lowest, locked position. and legs elevated on pillows. Patient eating breakfast. Call edwards and urinal in reach and cont'd with plan of care.
[2019-01-09] MEDS: Heparin 5000 units/ml inj SUBQ SCH ×2 (09:06→21:25)
--- NOTE | 2019-01-09 09:41 | Pulmonology Progress Note ---
Assessment/Plan Assessment/Plan ASSESSMENT Cellulitis RLE ,r/o abscess, septic knee ? Foreign body in R lower leg ( per imaging) DM OOC Hepatitis C, in remission HIV IVDA/methamphetamine Dehydration History of wound botulism Personality disorder PLAN OF CARE MS floor all X-rays noted metallic foreign body in the lateral superficial soft tissues, surgery eval pending abx as per ID Venous duplex BLE negative DVT prophylaxis CT scan right knee and right leg -pending BS management with SSRI check [id number] continue ART s/p 1 L IVF monitor renal parameters, electrolytes, correct electrolytes prn Seroquel was prior added for agitation Ativan added prn for anxiety/tremors/ w/drawal symptoms case discussed and evaluated by supervising physician Subjective Allergies: Coded Allergies: No Known Allergies (Unverified , 03/27/14) Subjective on RA, pulse ox stable afebrile anxious Objective Last 24 Hour Vital Signs Date Time Temp Pulse Resp B/P (MAP) Pulse Ox O2 Delivery O2 Flow Rate FiO2 01/09/19 08:07 98.5 97 20 123/81 (95) 98 01/09/19 08:06 79 18 95 Room Air 21 01/09/19 04:16 98.9 01/09/19 04:00 98.9 88 20 121/71 (88) 96 01/09/19 04:00 96 01/09/19 00:00 98.9 92 20 119/73 (88) 97 01/09/19 00:00 94 01/08/19 21:00 Room Air 01/08/19 20:24 86 20 94 Room Air 21 01/08/19 20:00 99.0 85 20 115/68 (84) 98 01/08/19 20:00 100 01/08/19 16:00 98.6 86 20 119/81 (94) 94 01/08/19 15:48 100 01/08/19 13:27 Room Air 01/08/19 12:00 97.8 76 20 138/82 (100) 94 01/08/19 11:28 106 Intake and Output 01/08/19 01/09/19 19:00 07:00 Intake Total 140 ml Output Total 1000 ml Balance 140 ml -1000 ml Intake Oral 140 ml Output Urine Total 1000 ml General Appearance: WD/WN, no acute distress, other - male, anxious, light tremors HEENT: normocephalic, atraumatic, anicteric, mucous membranes moist Respiratory/Chest: lungs clear, no respiratory distress, no accessory muscle use Cardiovascular: normal rate, regular rhythm - SR on tele , no JVD Abdomen: normal bowel sounds, soft, non tender, non distended Extremities: no edema, pedal pulses normal Neurologic/Psychiatric: 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, no motor/sensory deficits, alert, oriented x 3, responsive, other - tremors and shaking noted Musculoskeletal: normal muscle bulk Microbiology Date/Time Source Procedure Growth Status 01/07/19 14:15 Blood Blood Culture - Preliminary NO GROWTH AFTER 24 HOURS Resulted 01/07/19 14:00 Blood Blood Culture - Preliminary NO GROWTH AFTER 24 HOURS Resulted Laboratory Tests 01/09/19 03:03: White Blood Count [Pending], Lymphocytes [Pending], Vancomycin Level Trough 10.7 , Percent CD3 Cells [Pending], Absolute CD3 Count [Pending], Percent CD4 Cells [ Pending], Absolute CD4 Count [Pending], T-Lymphocyte CD4/CD8 Ratio [Pending], Percent CD8 Cells [Pending], Absolute CD8 Count [Pending] Current Medications Medications (Trade) Dose Ordered Sig/Naheed Route PRN Reason Start Time Stop Time Status Last Admin Dose Admin Acetaminophen (Tylenol) 650 mg Q4H PRN ORAL fever 01/07/19 20:00 02/06/19 19:59 Albuterol/ Ipratropium (Albuterol/ Ipratropium) 3 ml Q4H PRN HHN Shortness of Breath 01/07/19 20:00 01/12/19 19:59 Cefepime HCl 2 gm/ Dextrose 110 ml @ 220 mls/hr Q12HR@0300,1500 IV 01/08/19 03:00 01/15/19 02:59 01/09/19 03:00 Dextrose (Dextrose 50%) 25 ml Q30M PRN IV Hypoglycemia 01/07/19 20:00 02/06/19 19:59 Dextrose (Dextrose 50%) 50 ml Q30M PRN IV Hypoglycemia 01/07/19 20:00 02/06/19 19:59 Heparin Sodium (Porcine) (Heparin 5000 units/ml) 5,000 units EVERY 12 HOURS SUBQ 01/07/19 21:00 02/06/19 20:59 01/09/19 09:06 Insulin Aspart (NovoLOG) BEFORE MEALS AND HS SUBQ 01/08/19 11:30 02/07/19 11:29 01/09/19 06:03 Morphine Sulfate (Morphine Sulfate) 4 mg Q4H PRN IVP Moderate Pain (Pain Scale 4-6) 01/08/19 12:00 01/14/19 19:59 01/09/19 09:04 Nitroglycerin (Ntg) 0.4 mg Q5M PRN SL Prn Chest Pain 01/07/19 20:00 02/06/19 19:59 Ondansetron HCl (Zofran) 4 mg Q6H PRN IVP Nausea & Vomiting 01/07/19 20:00 02/06/19 19:59 Polyethylene Glycol (Miralax) 17 gm DAILYPRN PRN ORAL Constipation 01/07/19 20:00 02/06/19 19:59 Quetiapine Fumarate (SEROquel) 50 mg Q12HR ORAL 01/08/19 11:30 02/07/19 11:29 01/08/19 12:39 Temazepam (Restoril) 15 mg HSPRN PRN ORAL Insomnia 01/07/19 20:00 01/14/19 19:59 Vancomycin HCl (Vanco rx to dose) 1 ea DAILY PRN MISC . 01/07/19 20:15 02/06/19 20:14 Vancomycin HCl 1 gm/Dextrose 275 ml @ 183.3 mls/ hr Q12HR@0400,1600 IVPB 01/08/19 04:00 01/13/19 03:59 01/09/19 04:00 Tatyana Joe NP Jan 09, 2019 09:41
[2019-01-09] MEDS ORDERED: LORazepam Inj 2mg/ml 1ml IV PRN (11:00)
[2019-01-09] MEDS ORDERED: Gadavist 7.5mMol/7.5ml vial IV PRN (11:15)
--- NOTE | 2019-01-09 11:25 | Infectious Diseases Prog Note ---
Assessment/Plan Assessment/Plan Abx: IV Vancomcyin 01/07- Cefepime 01/07- Assessment: R knee pain, R leg cellulitis- r/o septic arthitis, r/o abscess -Xray R tibia/fibula: Metallic foreign body in the lateral superficial soft tissues. No acute bony trauma -xray L tibi/fibula: Posterior soft tissue opacity, most likely a focus of dystrophic calcification, less likely a small foreign body. No other significant abnormality -R knee xray: No definite suprapatellar effusion. No acute fractures. No dislocations. Joint spaces are preserved -V. dupplex: no DVT -B/l foot xray: no acute process Afebrile No leukocytosis -CXR: no acute findings HIV- Dx on 1985- currently on Symtuza and Tivicay -last HIV VL 40 and CD4 300s (per patient about 1.5 month ago) -has been on treatment for 30 years Dm2 Hep C IVDA (meth abuse) -uDS + amphetamines Plan: -Continue empiric IV Vancomycin and Cefepime #3 -f/u cx -Monitor CBC/CMP, temperatures -MRI R knee and CT R leg -Continue ARV (Symtuza and Tivicay) -Recomen Sx and ortho eval Thank you for this consultation. Will continue to follow along with you. Discussed with RN Subjective Allergies: Coded Allergies: No Known Allergies (Unverified , 03/27/14) Objective Vital Signs Last 24 Hour Vital Signs Date Time Temp Pulse Resp B/P (MAP) Pulse Ox O2 Delivery O2 Flow Rate FiO2 01/09/19 10:17 98.5 01/09/19 09:00 Room Air 01/09/19 08:07 98.5 97 20 123/81 (95) 98 01/09/19 08:06 79 18 95 Room Air 21 01/09/19 08:00 104 01/09/19 04:00 98.9 88 20 121/71 (88) 96 01/09/19 04:00 96 01/09/19 00:00 98.9 92 20 119/73 (88) 97 01/09/19 00:00 94 01/08/19 21:00 Room Air 01/08/19 20:24 86 20 94 Room Air 21 01/08/19 20:00 99.0 85 20 115/68 (84) 98 01/08/19 20:00 100 01/08/19 16:00 98.6 86 20 119/81 (94) 94 01/08/19 15:48 100 01/08/19 13:27 Room Air 01/08/19 12:00 97.8 76 20 138/82 (100) 94 01/08/19 11:28 106 Height (Feet): 6 Height (Inches): 0.00 Weight (Pounds): 205 Objective General Appearance: WD/WN Lines, tubes and drains: peripheral HEENT: normocephalic, atraumatic Neck: non-tender, normal alignment Respiratory/Chest: chest wall non-tender, lungs clear Cardiovascular/Chest: normal peripheral pulses, normal rate Abdomen: normal bowel sounds, non tender Extremities: normal range of motion Microbiology Date/Time Source Procedure Growth Status 01/07/19 14:15 Blood Blood Culture - Preliminary NO GROWTH AFTER 24 HOURS Resulted 01/07/19 14:00 Blood Blood Culture - Preliminary NO GROWTH AFTER 24 HOURS Resulted Laboratory Tests Test 01/09/19 03:03 White Blood Count Pending Lymphocytes Pending Vancomycin Level Trough 10.7 ug/mL (5.0-12.0) Percent CD3 Cells Pending Absolute CD3 Count Pending Percent CD4 Cells Pending Absolute CD4 Count Pending T-Lymphocyte CD4/CD8 Ratio Pending Percent CD8 Cells Pending Absolute CD8 Count Pending Current Medications Medications (Trade) Dose Ordered Sig/Naheed Route PRN Reason Start Time Stop Time Status Last Admin Dose Admin Acetaminophen (Tylenol) 650 mg Q4H PRN ORAL fever 01/07/19 20:00 02/06/19 19:59 Albuterol/ Ipratropium (Albuterol/ Ipratropium) 3 ml Q4H PRN HHN Shortness of Breath 01/07/19 20:00 01/12/19 19:59 Cefepime HCl 2 gm/ Dextrose 110 ml @ 220 mls/hr Q12HR@0300,1500 IV 01/08/19 03:00 01/15/19 02:59 01/09/19 03:00 Dextrose (Dextrose 50%) 25 ml Q30M PRN IV Hypoglycemia 01/07/19 20:00 02/06/19 19:59 Dextrose (Dextrose 50%) 50 ml Q30M PRN IV Hypoglycemia 01/07/19 20:00 02/06/19 19:59 Heparin Sodium (Porcine) (Heparin 5000 units/ml) 5,000 units EVERY 12 HOURS SUBQ 01/07/19 21:00 02/06/19 20:59 01/09/19 09:06 Insulin Aspart (NovoLOG) BEFORE MEALS AND HS SUBQ 01/08/19 11:30 02/07/19 11:29 01/09/19 06:03 Lorazepam (Ativan 2mg/ml 1ml) 1 mg Q4H PRN IV For Anxiety 01/09/19 11:00 01/16/19 10:59 Morphine Sulfate (Morphine Sulfate) 4 mg Q4H PRN IVP Moderate Pain (Pain Scale 4-6) 01/08/19 12:00 01/14/19 19:59 01/09/19 09:04 Nitroglycerin (Ntg) 0.4 mg Q5M PRN SL Prn Chest Pain 01/07/19 20:00 02/06/19 19:59 Ondansetron HCl (Zofran) 4 mg Q6H PRN IVP Nausea & Vomiting 01/07/19 20:00 02/06/19 19:59 Polyethylene Glycol (Miralax) 17 gm DAILYPRN PRN ORAL Constipation 01/07/19 20:00 02/06/19 19:59 Quetiapine Fumarate (SEROquel) 50 mg Q12HR ORAL 01/08/19 11:30 02/07/19 11:29 01/08/19 12:39 Temazepam (Restoril) 15 mg HSPRN PRN ORAL Insomnia 01/07/19 20:00 01/14/19 19:59 Vancomycin HCl (Vanco rx to dose) 1 ea DAILY PRN MISC . 01/07/19 20:15 02/06/19 20:14 Vancomycin HCl 1 gm/Dextrose 275 ml @ 183.3 mls/ hr Q12HR@0400,1600 IVPB 01/08/19 04:00 01/13/19 03:59 01/09/19 04:00 Mara Parker M.D. Jan 09, 2019 11:25
[2019-01-09 12:00] VITALS: BP 133/82
[2019-01-09] MEDS ORDERED: Omnipaque-300 100ml vial INJ SCH (12:00)
--- NOTE | 2019-01-09 13:40 | Consultation ---
History of Present Illness General Date patient seen: Jan 09, 2019 Reason for Hospitalization: Lower Extremity Injury Present Illness HPI This is a 63-year-old male with history of HIV, DM, IVDA who presents to the emergency department at [facility] complaining of 10 out of 10 right leg pain after injection of meth recently. Patient states he is rejected some time now and last use before this prior was 1 month ago. States he aims to obtain the vein and does not recall any other trauma or injury recently. States he had multiple abscesses in the past for similar reasons. Plain films obtained in emergency department and resulted as below. No nausea vomiting fever or chills. Labs noted. Area of concerning abscess. Surgery called to evaluate and assist with care. Patient seen, patient evaluated, chart reviewed. Pending imaging. 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 Review of Systems Review of Symptoms General ROS: no weight loss or fever Psychological ROS: no depression or mood changes, no memory loss Ophthalmic ROS: no visual changes or eye irritation ENT ROS: no nasal congestion, hearing loss, dizziness Allergy and Immunology ROS: no allergic symptoms or urticaria Hematological and Lymphatic ROS: no swollen glands, unusual bleeding or bruising Endocrine ROS: no polyuria, polydipsia, weight changes, temperature intolerance Respiratory ROS: no cough, shortness of breath, or wheezing Cardiovascular ROS: no chest pain or dyspnea on exertion Gastrointestinal ROS: denies abdominal pain, bright red blood in stool. Musculoskeletal ROS: no myalgias or arthralgias Neurological ROS: no TIA or stroke symptoms Dermatological ROS: no new or changing skin lesions, rashes or pruritis Physical Exam Physical Exam General appearance: alert, cooperative, no distress, appears stated age Head: Normocephalic, without obvious abnormality, atraumatic Eyes: conjunctivae/corneas clear. PERRL, EOM's intact. Fundi benign Throat: Lips, mucosa, and tongue normal. Teeth and gums normal Neck: supple, symmetrical, trachea midline, no adenopathy, thyroid: not enlarged, symmetric, no tenderness/mass/nodules, no carotid bruit and no JVD Lungs: clear to auscultation bilaterally Heart: regular rate and rhythm, S1, S2 normal, no murmur, click, rub or gallop Abdomen: soft, non-tender. Bowel sounds normal. No masses, no organomegaly Extremities: extremities right with mid shaft tibial area of cellulitis and soft tissue infection possible abscess. tender. erythema. multiple slow healing prior injections sites noted Pulses: 2+ and symmetric Skin: Skin color, texture, turgor normal. No rashes or lesions Neurologic: Grossly normal Last 24 Hour Vital Signs Date Time Temp Pulse Resp B/P (MAP) Pulse Ox O2 Delivery O2 Flow Rate FiO2 01/09/19 12:00 98.3 95 20 133/82 (99) 96 01/09/19 12:00 97 01/09/19 10:17 98.5 01/09/19 09:00 Room Air 01/09/19 08:07 98.5 97 20 123/81 (95) 98 01/09/19 08:06 79 18 95 Room Air 21 01/09/19 08:00 104 01/09/19 04:00 98.9 88 20 121/71 (88) 96 01/09/19 04:00 96 01/09/19 00:00 98.9 92 20 119/73 (88) 97 01/09/19 00:00 94 01/08/19 21:00 Room Air 01/08/19 20:24 86 20 94 Room Air 21 01/08/19 20:00 99.0 85 20 115/68 (84) 98 01/08/19 20:00 100 01/08/19 16:00 98.6 86 20 119/81 (94) 94 01/08/19 15:48 100 Intake and Output 01/08/19 01/09/19 19:00 07:00 Intake Total 140 ml Output Total 1000 ml Balance 140 ml -1000 ml Intake Oral 140 ml Output Urine Total 1000 ml Laboratory Tests Test 01/09/19 03:03 White Blood Count Pending Lymphocytes Pending Vancomycin Level Trough 10.7 ug/mL (5.0-12.0) Percent CD3 Cells Pending Absolute CD3 Count Pending Percent CD4 Cells Pending Absolute CD4 Count Pending T-Lymphocyte CD4/CD8 Ratio Pending Percent CD8 Cells Pending Absolute CD8 Count Pending Height (Feet): 6 Height (Inches): 0.00 Weight (Pounds): 205 Medications Current Medications Medications (Trade) Dose Ordered Sig/Naheed Route PRN Reason Start Time Stop Time Status Last Admin Dose Admin Acetaminophen (Tylenol) 650 mg Q4H PRN ORAL fever 01/07/19 20:00 02/06/19 19:59 Albuterol/ Ipratropium (Albuterol/ Ipratropium) 3 ml Q4H PRN HHN Shortness of Breath 01/07/19 20:00 01/12/19 19:59 Cefepime HCl 2 gm/ Dextrose 110 ml @ 220 mls/hr Q12HR@0300,1500 IV 01/08/19 03:00 01/15/19 02:59 01/09/19 03:00 Dextrose (Dextrose 50%) 25 ml Q30M PRN IV Hypoglycemia 01/07/19 20:00 02/06/19 19:59 Dextrose (Dextrose 50%) 50 ml Q30M PRN IV Hypoglycemia 01/07/19 20:00 02/06/19 19:59 Gadobutrol (Gadavist) 7.5 mmol NOW PRN IV Radiology Procedure 01/09/19 11:15 01/13/19 11:15 Heparin Sodium (Porcine) (Heparin 5000 units/ml) 5,000 units EVERY 12 HOURS SUBQ 01/07/19 21:00 02/06/19 20:59 01/09/19 09:06 Insulin Aspart (NovoLOG) BEFORE MEALS AND HS SUBQ 01/08/19 11:30 02/07/19 11:29 01/09/19 11:19 Iohexol (OMNIPAQUE-300 100ml) 100 ml ONCE INJ 01/09/19 12:00 01/09/19 16:00 Lorazepam (Ativan 2mg/ml 1ml) 1 mg Q4H PRN IV For Anxiety 01/09/19 11:00 01/16/19 10:59 01/09/19 11:18 Morphine Sulfate (Morphine Sulfate) 4 mg Q4H PRN IVP Moderate Pain (Pain Scale 4-6) 01/08/19 12:00 01/14/19 19:59 01/09/19 09:04 Nitroglycerin (Ntg) 0.4 mg Q5M PRN SL Prn Chest Pain 01/07/19 20:00 02/06/19 19:59 Ondansetron HCl (Zofran) 4 mg Q6H PRN IVP Nausea & Vomiting 01/07/19 20:00 02/06/19 19:59 Patient Own Medication (Patient's Own Med) 1 ea DAILY ORAL 01/09/19 11:30 02/08/19 11:29 UNV Polyethylene Glycol (Miralax) 17 gm DAILYPRN PRN ORAL Constipation 01/07/19 20:00 02/06/19 19:59 Quetiapine Fumarate (SEROquel) 50 mg Q12HR ORAL 01/08/19 11:30 02/07/19 11:29 01/08/19 12:39 Temazepam (Restoril) 15 mg HSPRN PRN ORAL Insomnia 01/07/19 20:00 01/14/19 19:59 Vancomycin HCl (Vanco rx to dose) 1 ea DAILY PRN MISC . 01/07/19 20:15 02/06/19 20:14 Vancomycin HCl 1 gm/Dextrose 275 ml @ 183.3 mls/ hr Q12HR@0400,1600 IVPB 01/08/19 04:00 01/13/19 03:59 01/09/19 04:00 Assessment/Plan Problem List: (1) Retained foreign body Assessment & Plan: 63-year-old male with retained foreign body in the lateral calf as per imaging. Patient unaware of having needle breakage or other trauma leading to such findings. Unable to identify clinically on examination. Pending further imaging. Findings: Linear metallic foreign body projects in the superficial subcutaneous fat of the lateral calf. No acute fractures. No dislocations. No soft tissue gas Impression: Metallic foreign body in the lateral superficial soft tissues No acute bony trauma ICD Codes: Z18.9 - Retained foreign body fragments, unspecified material SNOMED: [id number] (2) Cellulitis Assessment & Plan: Right lower extremity mid tibial anterior leg area of cellulitis with possible phlegmon versus abscess in the underlying soft tissue. Mild tender, erythema, warmth. Mild discomfort at the level of the knee. Multiple prior injection site tracks identified and slowly healing. MRI of knee pending CT of right leg pending Continue antibiotics as per infectious disease We will follow clinically and with examination and to follow-up imaging. May need incision and drainage and possible foreign body removal. Thank you for allowing me to participate in patient's care will follow with recommendations ICD Codes: L03.90 - Cellulitis, unspecified SNOMED: [id number] Eduardo Bruce Jan 09, 2019 13:40
--- NOTE | 2019-01-09 14:01 | NUR ---
NURSE NOTES: Doctors Elena and Cameron met to decide to go ahead with MRI of knee and CT scan today stat authorized. Patient has new transfer to [facility] order placed.
--- NOTE | 2019-01-09 15:18 | Diagnostic Imaging Report ---
EXAM: CT Right Lower Extremity Without And With Intravenous Contrast CLINICAL HISTORY: INFECT TECHNIQUE: Axial computed tomography images of the right lower extremity without and with intravenous contrast. Coronal and sagittal images were obtained and reviewed. CTDI is 9.80 mGy and DLP is 599.20 mGy-cm. One or more of the following dose reduction techniques were used: automated exposure control, adjustment of the mA and or kV according to patient size, use of iterative reconstruction technique. COMPARISON: X-rays of the tibia and fibula dated 01 07 19. MRI of the knee dated 01 09 19. FINDINGS: Bones joints: No visible fracture or dislocation. No osseous erosions. Soft tissues: 3.1 x 2.4 x 1.2 cm air-fluid collection and soft tissue swelling anterior to the proximal tibial diaphysis, likely representing a small abscess. Adjacent subcutaneous stranding cellulitis. Vasculature: Extensive atherosclerotic disease. IMPRESSION: 3.1 x 2.4 x 1.2 cm air-fluid collection and soft tissue swelling anterior to the proximal tibial diaphysis, likely representing a small abscess. Adjacent subcutaneous stranding cellulitis.
[2019-01-09 15:25] VITALS: BP 141/72
--- NOTE | 2019-01-09 17:36 | Internal Med Progress Note ---
Subjective Date of Service: Jan 09, 2019 Physician Name Mirza Martinez Attending Physician Jonathon Chaudhary MD Current Medications Medications (Trade) Dose Ordered Sig/Naheed Route PRN Reason Start Time Stop Time Status Last Admin Dose Admin Acetaminophen (Tylenol) 650 mg Q4H PRN ORAL fever 01/07/19 20:00 02/06/19 19:59 Albuterol/ Ipratropium (Albuterol/ Ipratropium) 3 ml Q4H PRN HHN Shortness of Breath 01/07/19 20:00 01/12/19 19:59 Cefepime HCl 2 gm/ Dextrose 110 ml @ 220 mls/hr Q12HR@0300,1500 IV 01/08/19 03:00 01/15/19 02:59 01/09/19 15:17 Dextrose (Dextrose 50%) 25 ml Q30M PRN IV Hypoglycemia 01/07/19 20:00 02/06/19 19:59 Dextrose (Dextrose 50%) 50 ml Q30M PRN IV Hypoglycemia 01/07/19 20:00 02/06/19 19:59 Gadobutrol (Gadavist) 7.5 mmol NOW PRN IV Radiology Procedure 01/09/19 11:15 01/13/19 11:15 Heparin Sodium (Porcine) (Heparin 5000 units/ml) 5,000 units EVERY 12 HOURS SUBQ 01/07/19 21:00 02/06/19 20:59 01/09/19 09:06 Insulin Aspart (NovoLOG) BEFORE MEALS AND HS SUBQ 01/08/19 11:30 02/07/19 11:29 01/09/19 16:24 Lorazepam (Ativan 2mg/ml 1ml) 1 mg Q4H PRN IV For Anxiety 01/09/19 11:00 01/16/19 10:59 01/09/19 11:18 Morphine Sulfate (Morphine Sulfate) 4 mg Q4H PRN IVP Moderate Pain (Pain Scale 4-6) 01/08/19 12:00 01/14/19 19:59 01/09/19 09:04 Nitroglycerin (Ntg) 0.4 mg Q5M PRN SL Prn Chest Pain 01/07/19 20:00 02/06/19 19:59 Ondansetron HCl (Zofran) 4 mg Q6H PRN IVP Nausea & Vomiting 01/07/19 20:00 02/06/19 19:59 Patient Own Medication (Patient's Own Med) 1 ea DAILY ORAL 01/09/19 11:30 02/08/19 11:29 UNV Polyethylene Glycol (Miralax) 17 gm DAILYPRN PRN ORAL Constipation 01/07/19 20:00 02/06/19 19:59 Quetiapine Fumarate (SEROquel) 50 mg Q12HR ORAL 01/08/19 11:30 02/07/19 11:29 01/08/19 12:39 Temazepam (Restoril) 15 mg HSPRN PRN ORAL Insomnia 01/07/19 20:00 01/14/19 19:59 Vancomycin HCl (Vanco rx to dose) 1 ea DAILY PRN MISC . 01/07/19 20:15 02/06/19 20:14 Vancomycin HCl 1 gm/Dextrose 275 ml @ 183.3 mls/ hr Q12HR@0400,1600 IVPB 01/08/19 04:00 01/13/19 03:59 01/09/19 16:13 Allergies: Coded Allergies: No Known Allergies (Unverified , 03/27/14) ROS Limited/Unobtainable: No Constitutional: Reports: no symptoms HEENT: Reports: no symptoms Cardiovascular: Reports: no symptoms Respiratory: Reports: no symptoms Gastrointestinal/Abdominal: Reports: no symptoms Genitourinary: Reports: no symptoms Neurologic/Psychiatric: Reports: no symptoms Subjective 63 YO M admitted with right leg pain. Now right leg cellulitis. Cover for Int Med-DR Chaudhary Objective Last Vital Signs Date Time Temp Pulse Resp B/P (MAP) Pulse Ox O2 Delivery O2 Flow Rate FiO2 01/09/19 15:25 98.8 102 20 141/72 (95) 96 01/09/19 09:00 Room Air 01/09/19 08:06 21 Laboratory Tests Test 01/09/19 03:03 White Blood Count Pending Lymphocytes Pending Vancomycin Level Trough 10.7 ug/mL (5.0-12.0) Percent CD3 Cells Pending Absolute CD3 Count Pending Percent CD4 Cells Pending Absolute CD4 Count Pending T-Lymphocyte CD4/CD8 Ratio Pending Percent CD8 Cells Pending Absolute CD8 Count Pending Microbiology Date/Time Source Procedure Growth Status 01/07/19 14:15 Blood Blood Culture - Preliminary NO GROWTH AFTER 24 HOURS Resulted 01/07/19 14:00 Blood Blood Culture - Preliminary NO GROWTH AFTER 24 HOURS Resulted Intake and Output 01/08/19 01/09/19 19:00 07:00 Intake Total 140 ml Output Total 1000 ml Balance 140 ml -1000 ml Intake Oral 140 ml Output Urine Total 1000 ml Objective ASSESSMENT: 1. Cellulitis of the right lower extremity. 2. History of HIV/AIDS. 3. History of intravenous drug abuse. 4. Diabetes type 2, uncontrolled. 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 7. Hepatitis C positive, currently in remission. 8. Dehydration. PLAN: 1. Admit the patient to telemetry. 2. We will follow up laboratory and cultures. 3. ID consultation. 4. Monitor blood glucose level closely. 5. Code status is Full Code. 6. DVT prophylaxis with heparin subcutaneous. 7. antibiotic = vancomycin and cefepime. Assessment/Plan Assessment/Plan ASSESSMENT: 1. Cellulitis of the right lower extremity. 2. History of HIV/AIDS. 3. History of intravenous drug abuse. 4. Diabetes type 2, uncontrolled. 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 7. Hepatitis C positive, currently in remission. 8. Dehydration. PLAN: 1. Admit the patient to telemetry. 2. We will follow up laboratory and cultures. 3. ID consultation. 4. Monitor blood glucose level closely. 5. Code status is Full Code. 6. DVT prophylaxis with heparin subcutaneous. 7. Broad-spectrum antibiotic with vancomycin and cefepime. Mirza Martinez MD Jan 09, 2019 17:35
--- NOTE | 2019-01-09 17:37 | Diagnostic Imaging Report ---
EXAM: MR Right Lower Extremity Without Intravenous Contrast, Knee CLINICAL HISTORY: INFECT TECHNIQUE: Multiplanar magnetic resonance images of the right knee without intravenous contrast. COMPARISON: 01 07 2019 x-rays. [address] FINDINGS: Limitations: Limited due to motion. BONES JOINTS CARTILAGE: No acute fracture or osteomyelitis. Patellofemoral compartment: Moderate knee joint effusion. Femorotibial compartments: Unremarkable. Extensor mechanism: Unremarkable. Medial meniscus: Unremarkable. No tear. Lateral meniscus: Unremarkable. No tear. Medial capsule supporting structures: Unremarkable. Normal medial collateral ligament. Lateral capsule supporting structures: Mild LCL edema which may be sprain versus infection inflammation. Anterior cruciate ligament: Unremarkable. Posterior cruciate ligament: Unremarkable. Musculature Soft tissues: Soft tissue edema. No discrete abscess. IMPRESSION: 1. No acute fracture or osteomyelitis. 2. Moderate knee joint effusion. 3. Mild LCL edema which may be sprain versus infection inflammation. 4. Soft tissue edema. No discrete abscess.
[2019-01-09] MEDS ORDERED: Nitroglycerin Subl 0.4mg tab SL PRN (17:45)
--- NOTE | 2019-01-09 17:50 | NUR ---
NURSE NOTES: Received pt from DOMENIC Maza. pt has old scar in sacral area and gangrene on right foot. picture was taken by Link and he will upload them. call light w/in reach.
[2019-01-09] MEDS ORDERED: Albuterol/Ipratropium 3ml neb HHN PRN (18:00)
[2019-01-09] MEDS ORDERED: Miralax 17gm pkt ORAL PRN (18:00)
--- NOTE | 2019-01-09 18:01 | NUR ---
NURSE NOTES: Patient transferred to #[id number] , report given to Rod. Pictures taken of R foot wound and Sacral redness. IV vanco running at time of transfer to [facility] access. patient dinner transported with patient so patient can eat on 3rd floor. More belongings found : patient stated "I had it hidden in my shoe" for wallet with $201 and ID cards, cigarettes/fur grader, phone kiln charger with no phone present. day care aide and May alerted to cigs/fur grader (secured by charge operator). Patient declined to put his wallet in safe. AOX4 breathing easily and no sign of cardiac distress. Addendum: 01/09/19 at 1944 by Mau Go RN pictures uploaded . Wound consult placed
--- NOTE | 2019-01-09 18:10 | NUR ---
NURSE NOTES: pt refused vital sign
--- NOTE | 2019-01-09 19:39 | NUR ---
NURSE NOTES: Received report from DOMENIC Velasco. Patient alert, resting in bed. No distress noted at this time.
--- NOTE | 2019-01-09 19:40 | NUR ---
NURSE NOTES: Bed in low position, locked, side rails up x2, call light within reach. Will continue to monitor.
--- NOTE | 2019-01-09 19:41 | NUR ---
HAND-OFF: Report given to DOMENIC Reich. pt is stable condition.
[2019-01-09 20:00] VITALS: BP 105/72
--- NOTE | 2019-01-09 21:35 | NUR ---
NURSE NOTES: Patient refused Seroquel.
--- NOTE | 2019-01-10 00:15 | NUR ---
HAND-OFF: Report given to DOMENIC Navarro.
--- NOTE | 2019-01-10 00:20 | NUR ---
NURSE NOTES: Received report & pt from DOMENIC Kimbrough for continuation of care. Pt lying in bed, asleep, a&ox4, easily arousable to verbal stimuli, in room air. No s/s of acute distress & no c/o pain at this time. IV site intact & S/L'd. Noted left leg cellulitis & right foot discoloration. Bed in lowest position, call light within reach. Will continue to monitor.
[2019-01-10] MEDS: Cefepime HCl 2 GM in D5W 110 ML IV SCH ×2 (03:10→15:01)
[2019-01-10 04:00] VITALS: BP 142/85
[2019-01-10] MEDS: Vancomycin 1 GM in D5W 275 ML IVPB SCH ×2 (04:07→16:39)
[2019-01-10] MEDS: NovoLOG Insulin Flexpen SUBQ SCH ×4 (06:14→21:39)
--- NOTE | 2019-01-10 07:30 | NUR ---
HAND-OFF: Report given to DOMENIC Barba & DOMENIC Gresham. Rounds done. Pt in stable condition.
--- NOTE | 2019-01-10 07:31 | Pulmonology Progress Note ---
Assessment/Plan Assessment/Plan ASSESSMENT Cellulitis RLE ,r/o abscess, septic knee ? Retained foreign body in R lower leg ( per imaging) DM OOC Hepatitis C, in remission HIV IVDA/methamphetamine Dehydration History of wound botulism Personality disorder PLAN OF CARE MS floor all X-rays noted metallic foreign body in the lateral superficial soft tissues, surgery eval appreciated abx as per ID Venous duplex BLE negative DVT prophylaxis CT scan right knee and right leg -pending BS management with SSRI check HgbA1c continue ART s/p 1 L IVF monitor renal parameters, electrolytes, correct electrolytes prn Seroquel was prior added for agitation case discussed and evaluated by supervising physician Subjective Allergies: Coded Allergies: No Known Allergies (Unverified , 03/27/14) Subjective on RA, pulse ox stable afebrile Objective Last 24 Hour Vital Signs Date Time Temp Pulse Resp B/P (MAP) Pulse Ox O2 Delivery O2 Flow Rate FiO2 01/10/19 04:00 98.1 85 16 142/85 (104) 96 01/09/19 21:00 Room Air 01/09/19 20:00 100.3 100 18 105/72 (83) 95 01/09/19 16:59 98 19 95 Room Air 21 01/09/19 15:25 98.8 102 20 141/72 (95) 96 01/09/19 12:00 98.3 95 20 133/82 (99) 96 01/09/19 12:00 97 01/09/19 10:17 98.5 01/09/19 09:00 Room Air 01/09/19 08:07 98.5 97 20 123/81 (95) 98 01/09/19 08:06 79 18 95 Room Air 21 01/09/19 08:00 104 Intake and Output 01/09/19 01/10/19 19:00 07:00 Intake Total 480 ml 600 ml Output Total 950 ml 1600 ml Balance -470 ml -1000 ml Intake Oral 480 ml 600 ml Output Urine Total 950 ml 1600 ml # Voids 1 Objective General Appearance: WD/WN, no acute distress, male, anxious, light tremors HEENT: normocephalic, atraumatic, anicteric, mucous membranes moist Respiratory/Chest: lungs clear, no respiratory distress, no accessory muscle use Cardiovascular: normal rate, regular rhythm - SR on tele , no JVD Abdomen: normal bowel sounds, soft, non tender, non distended Extremities: no edema, pedal pulses normal 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 Complete Laboratory Tests 01/10/19 05:30: White Blood Count [Pending], Red Blood Count [Pending], Hemoglobin [Pending], Hematocrit [Pending], Mean Corpuscular Volume [Pending], Mean Corpuscular Hemoglobin [Pending], Mean Corpuscular Hemoglobin Concent [Pending], Red Cell Distribution Width [Pending], Platelet Count [Pending], Mean Platelet Volume [ Pending], Neutrophils (%) (Auto) [Pending], Lymphocytes (%) (Auto) [Pending], Monocytes (%) (Auto) [Pending], Eosinophils (%) (Auto) [Pending], Basophils (%) (Auto) [Pending], Sodium Level [Pending], Potassium Level [Pending], Chloride Level [Pending], Carbon Dioxide Level [Pending], Blood Urea Nitrogen [Pending], Creatinine [Pending], Estimat Glomerular Filtration Rate [Pending], Glucose Level [Pending], Hemoglobin A1c [Pending], Calcium Level [Pending] Current Medications Medications (Trade) Dose Ordered Sig/Naheed Route PRN Reason Start Time Stop Time Status Last Admin Dose Admin Acetaminophen (Tylenol) 650 mg Q4H PRN ORAL fever 01/09/19 18:00 02/06/19 17:59 Albuterol/ Ipratropium (Albuterol/ Ipratropium) 3 ml Q4H PRN HHN Shortness of Breath 01/09/19 18:00 01/12/19 17:59 Cefepime HCl 2 gm/ Dextrose 110 ml @ 220 mls/hr Q12HR@0300,1500 IV 01/10/19 03:00 01/15/19 02:59 01/10/19 03:10 Dextrose (Dextrose 50%) 25 ml Q30M PRN IV Hypoglycemia 01/09/19 18:00 02/06/19 19:59 Dextrose (Dextrose 50%) 50 ml Q30M PRN IV Hypoglycemia 01/09/19 18:00 02/06/19 19:59 Gadobutrol (Gadavist) 7.5 mmol NOW PRN IV Radiology Procedure 01/10/19 11:15 01/13/19 11:15 Heparin Sodium (Porcine) (Heparin 5000 units/ml) 5,000 units EVERY 12 HOURS SUBQ 01/09/19 21:00 02/06/19 20:59 01/09/19 21:25 Insulin Aspart (NovoLOG) BEFORE MEALS AND HS SUBQ 01/09/19 21:00 02/07/19 11:29 01/10/19 06:14 Lorazepam (Ativan 2mg/ml 1ml) 1 mg Q4H PRN IV For Anxiety 01/09/19 18:00 01/16/19 17:59 Morphine Sulfate (Morphine Sulfate) 4 mg Q4H PRN IVP Moderate Pain (Pain Scale 4-6) 01/09/19 18:00 01/14/19 17:59 Nitroglycerin (Ntg) 0.4 mg Q5M PRN SL Prn Chest Pain 01/09/19 17:45 02/06/19 19:59 Ondansetron HCl (Zofran) 4 mg Q6H PRN IVP Nausea & Vomiting 01/09/19 18:00 02/06/19 17:59 Patient Own Medication (Patient's Own Med) 1 ea DAILY ORAL 01/10/19 09:00 02/08/19 11:29 UNV Polyethylene Glycol (Miralax) 17 gm DAILYPRN PRN ORAL Constipation 01/09/19 18:00 02/06/19 17:59 Quetiapine Fumarate (SEROquel) 50 mg Q12HR ORAL 01/09/19 21:00 02/07/19 11:29 01/09/19 21:23 Temazepam (Restoril) 15 mg HSPRN PRN ORAL Insomnia 01/09/19 20:00 01/14/19 19:59 Vancomycin HCl (Vanco rx to dose) 1 ea DAILY PRN MISC . 01/10/19 09:00 02/06/19 20:14 Vancomycin HCl 1 gm/Dextrose 275 ml @ 183.3 mls/ hr Q12HR@0400,1600 IVPB 01/10/19 04:00 01/13/19 03:59 01/10/19 04:07 Tatyana Joe NP Jan 10, 2019 07:31
[2019-01-10 07:46] LABS: BASOPHILS % (AUTO) 0.5 % (0.0-2.0); EOSINOPHILS % (AUTO) 5.2 % (0.0-3.0); HEMATOCRIT 34.9 % (42.0-52.0); HEMOGLOBIN 11.9 G/DL (14.2-18.0); LYMPHOCYTES % (AUTO) 17.3 % (20.0-45.0); MEAN CORPUSCULAR VOLUME 88 FL (80-99); MONOCYTES % (AUTO) 11.5 % (1.0-10.0); NEUTROPHILS % (AUTO) 65.5 % (45.0-75.0); PLATELET COUNT 225 K/UL (150-450); RED BLOOD COUNT 3.95 M/UL (4.70-6.10); RED CELL DISTRIBUTION WIDTH 11.5 % (11.6-14.8); WHITE BLOOD COUNT 4.1 K/UL (4.8-10.8)
[2019-01-10 08:00] VITALS: BP 134/87
[2019-01-10 08:02] LABS: ANION GAP 9 mmol/L (5-15); BLOOD UREA NITROGEN 13 mg/dL (7-18); CALCIUM 8.9 MG/DL (8.5-10.1); CARBON DIOXIDE 29 MMOL/L (21-32); CHLORIDE 100 MMOL/L (98-107); SODIUM 138 MMOL/L (136-145)
--- NOTE | 2019-01-10 08:03 | NUR ---
NURSE NOTES: Received pt in bed, AAO x 4. Room air. No c/o of pain/distress. IV on L hand 22g noted. Side rails x 2. Bed in the lowest, locked, and alarm on. Call light within reach. Will continue to monitor
[2019-01-10] MEDS: Heparin 5000 units/ml inj SUBQ SCH ×2 (08:54→21:31)
[2019-01-10] MEDS: Morphine Sulfate 4mg/ml Inj (IV USE ONLY) IVP PRN ×3 (09:02→23:34)
[2019-01-10] MEDS ORDERED: Albuterol/Ipratropium 3ml neb HHN PRN (10:00)
[2019-01-10] MEDS ORDERED: Lidocaine 1% 10mg/ml/Epi 0.005mg/ml 30ml vial INJ SCH (11:00)
[2019-01-10] MEDS ORDERED: Gadavist 7.5mMol/7.5ml vial IV PRN (11:15)
[2019-01-10 12:00] VITALS: BP 150/84
--- NOTE | 2019-01-10 12:47 | Surgery Progress Note ---
Surgery Progress Note Subjective Additional Comments No acute events. MRI of the knee and CT of the leg noted. Abscess identified. Correlate with clinical exam. Plan for I&D today. Objective Last 24 Hour Vital Signs Date Time Temp Pulse Resp B/P (MAP) Pulse Ox O2 Delivery O2 Flow Rate FiO2 01/10/19 12:00 98.3 98 20 150/84 (106) 98 01/10/19 09:00 Room Air 01/10/19 08:00 98.0 97 20 134/87 (103) 94 01/10/19 04:00 98.1 85 16 142/85 (104) 96 01/09/19 21:00 Room Air 01/09/19 20:00 100.3 100 18 105/72 (83) 95 01/09/19 16:59 98 19 95 Room Air 21 01/09/19 15:25 98.8 102 20 141/72 (95) 96 I&O Intake and Output 01/09/19 01/10/19 19:00 07:00 Intake Total 480 ml 600 ml Output Total 950 ml 1600 ml Balance -470 ml -1000 ml Intake Oral 480 ml 600 ml Output Urine Total 950 ml 1600 ml # Voids 1 Cardiovascular: RSR Respiratory: clear Abdomen: soft, flat, non-distended Extremities: edema, no tenderness, no cyanosis Laboratory Tests Test 01/10/19 05:30 White Blood Count 4.1 K/UL (4.8-10.8) L Red Blood Count 3.95 M/UL (4.70-6.10) L Hemoglobin 11.9 G/DL (14.2-18.0) L Hematocrit 34.9 % (42.0-52.0) L Mean Corpuscular Volume 88 FL (80-99) Mean Corpuscular Hemoglobin 30.3 PG (27.0-31.0) Mean Corpuscular Hemoglobin Concent 34.2 G/DL (32.0-36.0) Red Cell Distribution Width 11.5 % (11.6-14.8) L Platelet Count 225 K/UL (150-450) Mean Platelet Volume 4.4 FL (6.5-10.1) L Neutrophils (%) (Auto) 65.5 % (45.0-75.0) Lymphocytes (%) (Auto) 17.3 % (20.0-45.0) L Monocytes (%) (Auto) 11.5 % (1.0-10.0) H Eosinophils (%) (Auto) 5.2 % (0.0-3.0) H Basophils (%) (Auto) 0.5 % (0.0-2.0) Sodium Level 138 MMOL/L (136-145) Potassium Level 4.0 MMOL/L (3.5-5.1) Chloride Level 100 MMOL/L (98-107) Carbon Dioxide Level 29 MMOL/L (21-32) Anion Gap 9 mmol/L (5-15) Blood Urea Nitrogen 13 mg/dL (7-18) Creatinine 1.0 MG/DL (0.55-1.30) Estimat Glomerular Filtration Rate > 60 mL/min (>60) Glucose Level 244 MG/DL (74-106) H Hemoglobin A1c 7.3 % (4.3-6.0) H Calcium Level 8.9 MG/DL (8.5-10.1) Plan Problems: (1) Retained foreign body Assessment & Plan: 63-year-old male with retained foreign body in the lateral calf as per imaging. Patient unaware of having needle breakage or other trauma leading to such findings. Unable to identify clinically on examination. Pending further imaging. Findings: Linear metallic foreign body projects in the superficial subcutaneous fat of the lateral calf. No acute fractures. No dislocations. No soft tissue gas Impression: Metallic foreign body in the lateral superficial soft tissues No acute bony trauma (2) Cellulitis Assessment & Plan: Right lower extremity mid tibial anterior leg area of cellulitis with possible phlegmon versus abscess in the underlying soft tissue. Mild tender, erythema, warmth. Mild discomfort at the level of the knee. Multiple prior injection site tracks identified and slowly healing. MRI of knee noted, no active infection, some fluid joint CT of right leg noted with anterior tibial abscess. Continue antibiotics as per infectious disease We will follow clinically and with examination and to follow-up imaging. ID performed on 01/10/2019 see procedure note Packing dressing 3 times daily Thank you for allowing me to participate in patient's care will follow with recommendations Eduardo Bruce Jan 10, 2019 12:47
--- NOTE | 2019-01-10 12:49 | Operative Note - PDOC ---
Operative Note Operative Note Date of Operation/Procedure: Jan 10, 2019 Pre-op Diagnosis: Right leg abscess Procedure: Incision and drainage of right leg abscess Post-op Diagnosis: same as pre-op Surgeon: Eduardo Bruce MD Anesthesia: local Specimen: yes Complications: none Condition: stable Estimated Blood Loss: minimal Drains: none Implant(s) used?: No Indications for Procedure This is a 63-year-old male with IVDA history who injected into his right leg recently. Since has abscess formation. Work-up was performed MRI of the knee negative CT of the leg with small abscess anterior tibial. Incision and drainage indicated recommended. Risk medicine alternatives discussed with patient expressed understanding consented to procedure. Description of Procedure Patient was made comfortable at the bedside. The right leg was prepped draped in the same surgical fashion. Chlorhexidine scrub was used for prep. 1% lidocaine with epinephrine was infiltrated the proposed skin incision at the identified abscess on the right anterior proximal tibial leg. Area of maximal fluctuance was infiltrated with anesthetic. Once appropriate anesthetic effect was achieved a fresh #15 scalpel was used and a cruciate incision was made over the area of maximal fluctuance. Purulent fluid was evacuated and cultures were sent. We will follow-up on microbiology. The abscess was completely drained and then irrigated with normal saline until clear. Abscess was packed with gauze packing followed by dressings. Patient tolerated procedure well. We will continue with packing dressing changes until healed. Eduardo Bruce Jan 10, 2019 12:49
[2019-01-10 16:00] VITALS: BP 117/77
[2019-01-10] MEDS ORDERED: Tubing IV Secondary IV ONE (16:05)
--- NOTE | 2019-01-10 16:15 | NUR ---
NURSE NOTES: Most recent Vancomycin trough is 11.8; per pharmacist, REGLA [place] to administer scheduled Vancomycin 1 gm. Will continue to monitor.
--- NOTE | 2019-01-10 16:50 | Internal Med Progress Note ---
Subjective Date of Service: Jan 10, 2019 Physician Name Mirza Martinez Attending Physician Jonathon Chaudhary MD Current Medications Medications (Trade) Dose Ordered Sig/Naheed Route PRN Reason Start Time Stop Time Status Last Admin Dose Admin Acetaminophen (Tylenol) 650 mg Q4H PRN ORAL fever 01/09/19 18:00 02/06/19 17:59 Albuterol/ Ipratropium (Albuterol/ Ipratropium) 3 ml Q4H PRN HHN Shortness of Breath 01/10/19 10:00 01/13/19 09:59 Cefepime HCl 2 gm/ Dextrose 110 ml @ 220 mls/hr Q12HR@0300,1500 IV 01/10/19 03:00 01/15/19 02:59 01/10/19 15:01 Dextrose (Dextrose 50%) 25 ml Q30M PRN IV Hypoglycemia 01/09/19 18:00 02/06/19 19:59 Dextrose (Dextrose 50%) 50 ml Q30M PRN IV Hypoglycemia 01/09/19 18:00 02/06/19 19:59 Gadobutrol (Gadavist) 7.5 mmol NOW PRN IV Radiology Procedure 01/10/19 11:15 01/13/19 11:15 Heparin Sodium (Porcine) (Heparin 5000 units/ml) 5,000 units EVERY 12 HOURS SUBQ 01/09/19 21:00 02/06/19 20:59 01/10/19 08:54 Insulin Aspart (NovoLOG) BEFORE MEALS AND HS SUBQ 01/09/19 21:00 02/07/19 11:29 01/10/19 16:43 Lorazepam (Ativan 2mg/ml 1ml) 1 mg Q4H PRN IV For Anxiety 01/09/19 18:00 01/16/19 17:59 Morphine Sulfate (Morphine Sulfate) 4 mg Q4H PRN IVP Moderate Pain (Pain Scale 4-6) 01/09/19 18:00 01/14/19 17:59 01/10/19 09:02 Nitroglycerin (Ntg) 0.4 mg Q5M PRN SL Prn Chest Pain 01/09/19 17:45 02/06/19 19:59 Ondansetron HCl (Zofran) 4 mg Q6H PRN IVP Nausea & Vomiting 01/09/19 18:00 02/06/19 17:59 Patient Own Medication (Patient's Own Med) 1 ea DAILY ORAL 01/10/19 09:00 02/08/19 11:29 UNV Polyethylene Glycol (Miralax) 17 gm DAILYPRN PRN ORAL Constipation 01/09/19 18:00 02/06/19 17:59 Quetiapine Fumarate (SEROquel) 50 mg Q12HR ORAL 01/09/19 21:00 02/07/19 11:29 01/10/19 08:54 Temazepam (Restoril) 15 mg HSPRN PRN ORAL Insomnia 01/09/19 20:00 01/14/19 19:59 Vancomycin HCl (Vanco rx to dose) 1 ea DAILY PRN MISC . 01/10/19 09:00 02/06/19 20:14 Vancomycin HCl 1 gm/Dextrose 275 ml @ 183.3 mls/ hr Q12HR@0400,1600 IVPB 01/10/19 04:00 01/13/19 03:59 01/10/19 16:39 Allergies: Coded Allergies: No Known Allergies (Unverified , 03/27/14) ROS Limited/Unobtainable: No Constitutional: Reports: no symptoms HEENT: Reports: no symptoms Cardiovascular: Reports: no symptoms Respiratory: Reports: no symptoms Gastrointestinal/Abdominal: Reports: no symptoms Genitourinary: Reports: no symptoms Neurologic/Psychiatric: Reports: no symptoms Subjective 63 YO M admitted with right leg pain. Now right leg cellulitis and abscess. Cover for Int Med-DR Chaudhary Objective Last Vital Signs Date Time Temp Pulse Resp B/P (MAP) Pulse Ox O2 Delivery O2 Flow Rate FiO2 01/10/19 12:00 98.3 98 20 150/84 (106) 98 01/10/19 09:00 Room Air 01/09/19 16:59 21 Laboratory Tests Test 01/10/19 05:30 01/10/19 15:30 White Blood Count 4.1 K/UL (4.8-10.8) L Red Blood Count 3.95 M/UL (4.70-6.10) L Hemoglobin 11.9 G/DL (14.2-18.0) L Hematocrit 34.9 % (42.0-52.0) L Mean Corpuscular Volume 88 FL (80-99) Mean Corpuscular Hemoglobin 30.3 PG (27.0-31.0) Mean Corpuscular Hemoglobin Concent 34.2 G/DL (32.0-36.0) Red Cell Distribution Width 11.5 % (11.6-14.8) L Platelet Count 225 K/UL (150-450) Mean Platelet Volume 4.4 FL (6.5-10.1) L Neutrophils (%) (Auto) 65.5 % (45.0-75.0) Lymphocytes (%) (Auto) 17.3 % (20.0-45.0) L Monocytes (%) (Auto) 11.5 % (1.0-10.0) H Eosinophils (%) (Auto) 5.2 % (0.0-3.0) H Basophils (%) (Auto) 0.5 % (0.0-2.0) Sodium Level 138 MMOL/L (136-145) Potassium Level 4.0 MMOL/L (3.5-5.1) Chloride Level 100 MMOL/L (98-107) Carbon Dioxide Level 29 MMOL/L (21-32) Anion Gap 9 mmol/L (5-15) Blood Urea Nitrogen 13 mg/dL (7-18) Creatinine 1.0 MG/DL (0.55-1.30) Estimat Glomerular Filtration Rate > 60 mL/min (>60) Glucose Level 244 MG/DL (74-106) H Hemoglobin A1c 7.3 % (4.3-6.0) H Calcium Level 8.9 MG/DL (8.5-10.1) Vancomycin Level Trough 11.8 ug/mL (5.0-12.0) Microbiology Date/Time Source Procedure Growth Status 01/08/19 08:40 Nasal Nares MRSA Culture - Final NO METHICILLIN RESISTANT STAPH AUREUS... Complete 01/08/19 08:40 Rectum VRE Culture - Final NO VANCOMYCIN RESISTANT ENTEROCOCCUS ... Complete 01/08/19 08:40 Rectum - Final NO CARBAPENEM-RESISTANT ENTEROBACTERI... Complete Intake and Output 01/09/19 01/10/19 19:00 07:00 Intake Total 480 ml 600 ml Output Total 950 ml 1600 ml Balance -470 ml -1000 ml Intake Oral 480 ml 600 ml Output Urine Total 950 ml 1600 ml # Voids 1 Objective ASSESSMENT: 1. Cellulitis of the right lower extremity. 2. History of HIV/AIDS. 3. History of intravenous drug abuse. 4. Diabetes type 2, uncontrolled. 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 7. Hepatitis C positive, currently in remission. 8. Dehydration. PLAN: 1. Admit the patient to telemetry. 2. We will follow up laboratory and cultures. 3. ID consultation. 4. Monitor blood glucose level closely. 5. Code status is Full Code. 6. DVT prophylaxis with heparin subcutaneous. 7. antibiotic = vancomycin and cefepime. Assessment/Plan Assessment/Plan ASSESSMENT: 1. Cellulitis of the right lower extremity. 2. History of HIV/AIDS. 3. History of intravenous drug abuse. 4. Diabetes type 2, uncontrolled. 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 7. Hepatitis C positive, currently in remission. 8. Dehydration. 9. Abscess right leg PLAN: 1. Admit the patient to telemetry. 2. We will follow up laboratory and cultures. 3. ID consultation. 4. Monitor blood glucose level closely. 5. Code status is Full Code. 6. DVT prophylaxis with heparin subcutaneous. 7. Broad-spectrum antibiotic with vancomycin and cefepime. 8. S/P Incision and drainage abscess right leg 01/10/19-See surgery note Mirza Martinez MD Jan 10, 2019 16:50
--- NOTE | 2019-01-10 19:30 | NUR ---
NURSE NOTES: Receive a report from DOMENIC Barba. Round is done. Pt is awake and alert. No acute distress noted. Provide pain medication by AM shift nurse d/t right knee pain. Will follow up the condition. Call light within reach. Provide fall precautions. Pt verbalizes understanding. Will continue to monitor.
[2019-01-10 20:00] VITALS: BP 124/82
--- NOTE | 2019-01-10 21:00 | NUR ---
NURSE NOTES: Pain decreased after pain medication. Sacrum area is clear without any skin abrasion. Kept dressing clean and dry on right leg. Will continue to monitor.
[2019-01-11] VITALS: BP 124/73
[2019-01-11] MEDS: Cefepime HCl 2 GM in D5W 110 ML IV SCH ×2 (03:02→14:33)
[2019-01-11] MEDS: Vancomycin 1 GM in D5W 275 ML IVPB SCH ×2 (04:13→15:34)
[2019-01-11 04:30] VITALS: BP 114/68
[2019-01-11] MEDS: NovoLOG Insulin Flexpen SUBQ SCH ×4 (06:35→20:25)
--- NOTE | 2019-01-11 07:30 | NUR ---
HAND-OFF: Report given to DOMENIC Queen. Round is done. Just had BM in the bathroom.
--- NOTE | 2019-01-11 07:51 | NUR ---
NURSE NOTES: Patient received in stable condition, resting in bed. Alert and oriented x3, with moments of confusion during conversation. Denies pain or SOB at this time. Urinal by the bedside. IV site on left arm patent and intact, saline locked. Dressing on right leg c/d/i. Dressing to be changed later today. Bed locked in lowest position, call light placed within reach. Will continue to monitor.
[2019-01-11 08:00] VITALS: BP 122/70
[2019-01-11 08:26] LABS: BASOPHILS % (AUTO) 1.1 % (0.0-2.0); EOSINOPHILS % (AUTO) 9.4 % (0.0-3.0); HEMATOCRIT 35.7 % (42.0-52.0); HEMOGLOBIN 12.2 G/DL (14.2-18.0); LYMPHOCYTES % (AUTO) 17.1 % (20.0-45.0); MEAN CORPUSCULAR VOLUME 89 FL (80-99); MONOCYTES % (AUTO) 10.7 % (1.0-10.0); NEUTROPHILS % (AUTO) 61.6 % (45.0-75.0); PLATELET COUNT 230 K/UL (150-450); RED BLOOD COUNT 4.02 M/UL (4.70-6.10); RED CELL DISTRIBUTION WIDTH 11.6 % (11.6-14.8); WHITE BLOOD COUNT 3.6 K/UL (4.8-10.8)
[2019-01-11] MEDS: Heparin 5000 units/ml inj SUBQ SCH ×2 (08:29→20:17)
[2019-01-11 08:42] LABS: ANION GAP 8 mmol/L (5-15); BLOOD UREA NITROGEN 10 mg/dL (7-18); CALCIUM 8.9 MG/DL (8.5-10.1); CARBON DIOXIDE 30 MMOL/L (21-32); CHLORIDE 101 MMOL/L (98-107); SODIUM 139 MMOL/L (136-145)
--- NOTE | 2019-01-11 11:50 | Pulmonology Progress Note ---
Assessment/Plan Problems: (1) Cellulitis (2) Phlebitis (3) Diabetes mellitus (4) Substance abuse (5) Hysterical personality disorder (6) Noncompliance (7) HIV (human immunodeficiency virus infection) Assessment/Plan improving continue abx check cultures continue psychiatric meds Subjective ROS Limited/Unobtainable: No Constitutional: Reports: no symptoms HEENT: Repors: no symptoms Respiratory: Reports: no symptoms Allergies: Coded Allergies: No Known Allergies (Unverified , 03/27/14) Objective Last 24 Hour Vital Signs Date Time Temp Pulse Resp B/P (MAP) Pulse Ox O2 Delivery O2 Flow Rate FiO2 01/11/19 09:00 Room Air 01/11/19 08:00 98.4 93 18 122/70 (87) 95 01/11/19 07:28 93 18 96 Room Air 21 01/11/19 04:30 98.6 88 18 114/68 (83) 95 01/11/19 00:00 98.0 99 18 124/73 (90) 96 01/10/19 21:00 Room Air 01/10/19 20:11 101 18 96 Room Air 21 01/10/19 20:00 98.2 99 20 124/82 (96) 96 01/10/19 16:00 98.4 104 20 117/77 (90) 96 01/10/19 12:00 98.3 98 20 150/84 (106) 98 Intake and Output 01/10/19 01/11/19 19:00 07:00 Intake Total 110 ml 250 ml Output Total 850 ml 900 ml Balance -740 ml -650 ml Intake Oral 250 ml IV Total 110 ml Output Urine Total 850 ml 900 ml # Voids 4 # Bowel Movements 1 General Appearance: WD/WN HEENT: normocephalic, atraumatic Respiratory/Chest: chest wall non-tender, lungs clear, normal breath sounds Cardiovascular: normal peripheral pulses, normal rate, no JVD Abdomen: normal bowel sounds, soft, non tender Genitourinary: normal external genitalia Extremities: no clubbing Skin: no ulcers Neurologic/Psychiatric: no motor/sensory deficits Microbiology Date/Time Source Procedure Growth Status 01/10/19 11:45 Leg Right Gram Stain - Final Resulted 01/10/19 11:45 Leg Right Wound Culture - Preliminary NO GROWTH Resulted Laboratory Tests 01/10/19 15:30: Vancomycin Level Trough 11.8 01/11/19 08:05: White Blood Count 3.6L, Red Blood Count 4.02L, Hemoglobin 12.2L, Hematocrit 35.7L, Mean Corpuscular Volume 89, Mean Corpuscular Hemoglobin 30.4, Mean Corpuscular Hemoglobin Concent 34.3, Red Cell Distribution Width 11.6, Platelet Count 230, Mean Platelet Volume 4.6L, Neutrophils (%) (Auto) 61.6, Lymphocytes ( %) (Auto) 17.1L, Monocytes (%) (Auto) 10.7H, Eosinophils (%) (Auto) 9.4H, Basophils (%) (Auto) 1.1, Sodium Level 139, Potassium Level 4.0, Chloride Level 101, Carbon Dioxide Level 30, Anion Gap 8, Blood Urea Nitrogen 10, Creatinine 1.0, Estimat Glomerular Filtration Rate > 60, Glucose Level 259H, Calcium Level 8.9 Current Medications Medications (Trade) Dose Ordered Sig/Naheed Route PRN Reason Start Time Stop Time Status Last Admin Dose Admin Acetaminophen (Tylenol) 650 mg Q4H PRN ORAL fever 01/09/19 18:00 02/06/19 17:59 Albuterol/ Ipratropium (Albuterol/ Ipratropium) 3 ml Q4H PRN HHN Shortness of Breath 01/10/19 10:00 01/13/19 09:59 Cefepime HCl 2 gm/ Dextrose 110 ml @ 220 mls/hr Q12HR@0300,1500 IV 01/10/19 03:00 01/15/19 02:59 01/11/19 03:02 Dextrose (Dextrose 50%) 25 ml Q30M PRN IV Hypoglycemia 01/09/19 18:00 02/06/19 19:59 Dextrose (Dextrose 50%) 50 ml Q30M PRN IV Hypoglycemia 01/09/19 18:00 02/06/19 19:59 Gadobutrol (Gadavist) 7.5 mmol NOW PRN IV Radiology Procedure 01/10/19 11:15 01/13/19 11:15 Heparin Sodium (Porcine) (Heparin 5000 units/ml) 5,000 units EVERY 12 HOURS SUBQ 01/09/19 21:00 02/06/19 20:59 01/11/19 08:29 Insulin Aspart (NovoLOG) BEFORE MEALS AND HS SUBQ 01/09/19 21:00 02/07/19 11:29 01/11/19 06:35 Lorazepam (Ativan 2mg/ml 1ml) 1 mg Q4H PRN IV For Anxiety 01/09/19 18:00 01/16/19 17:59 Morphine Sulfate (Morphine Sulfate) 4 mg Q4H PRN IVP Moderate Pain (Pain Scale 4-6) 01/09/19 18:00 01/14/19 17:59 01/10/19 23:34 Nitroglycerin (Ntg) 0.4 mg Q5M PRN SL Prn Chest Pain 01/09/19 17:45 02/06/19 19:59 Ondansetron HCl (Zofran) 4 mg Q6H PRN IVP Nausea & Vomiting 01/09/19 18:00 02/06/19 17:59 Patient Own Medication (Patient's Own Med) 1 ea DAILY ORAL 01/10/19 09:00 02/08/19 11:29 UNV Polyethylene Glycol (Miralax) 17 gm DAILYPRN PRN ORAL Constipation 01/09/19 18:00 02/06/19 17:59 Quetiapine Fumarate (SEROquel) 50 mg Q12HR ORAL 01/09/19 21:00 02/07/19 11:29 01/10/19 08:54 Temazepam (Restoril) 15 mg HSPRN PRN ORAL Insomnia 01/09/19 20:00 01/14/19 19:59 Vancomycin HCl (Vanco rx to dose) 1 ea DAILY PRN MISC . 01/10/19 09:00 02/06/19 20:14 Vancomycin HCl 1 gm/Dextrose 275 ml @ 183.3 mls/ hr Q12HR@0400,1600 IVPB 01/10/19 04:00 01/13/19 03:59 01/11/19 04:13 Kelly Mcintosh MD Jan 11, 2019 11:50
[2019-01-11 12:00] VITALS: BP 125/77
[2019-01-11] MEDS: Morphine Sulfate 4mg/ml Inj (IV USE ONLY) IVP PRN ×2 (12:47→20:14)
--- NOTE | 2019-01-11 12:51 | NUR ---
CASE MANAGEMENT:REVIEW 01/11/19 SI: SEPSIS. CELLULITIS. HYPERGLYCEMIA RETAINED FOREIGN BODY 98.4 93 18 122/70 95% ON RA WBC 3.6; BG 259; URINE(+) AMPHETAMINES IS: IV VANCOMYCIN Q12HR IV CEFEPIME Q12HR HEPARIN SQ Q12HR NOVOLOG SQ AC&HS IV MORPHINE SULFATE Q4/PRN : 3E MED SURG DCP; FROM HOME PLAN: SP ID
--- NOTE | 2019-01-11 13:56 | Internal Med Progress Note ---
Subjective Date of Service: Jan 11, 2019 Physician Name Mirza Martinez Attending Physician Jonathon Chaudhary MD Current Medications Medications (Trade) Dose Ordered Sig/Naheed Route PRN Reason Start Time Stop Time Status Last Admin Dose Admin Acetaminophen (Tylenol) 650 mg Q4H PRN ORAL fever 01/09/19 18:00 02/06/19 17:59 Albuterol/ Ipratropium (Albuterol/ Ipratropium) 3 ml Q4H PRN HHN Shortness of Breath 01/10/19 10:00 01/13/19 09:59 Cefepime HCl 2 gm/ Dextrose 110 ml @ 220 mls/hr Q12HR@0300,1500 IV 01/10/19 03:00 01/15/19 02:59 01/11/19 03:02 Dextrose (Dextrose 50%) 25 ml Q30M PRN IV Hypoglycemia 01/09/19 18:00 02/06/19 19:59 Dextrose (Dextrose 50%) 50 ml Q30M PRN IV Hypoglycemia 01/09/19 18:00 02/06/19 19:59 Gadobutrol (Gadavist) 7.5 mmol NOW PRN IV Radiology Procedure 01/10/19 11:15 01/13/19 11:15 Heparin Sodium (Porcine) (Heparin 5000 units/ml) 5,000 units EVERY 12 HOURS SUBQ 01/09/19 21:00 02/06/19 20:59 01/11/19 08:29 Insulin Aspart (NovoLOG) BEFORE MEALS AND HS SUBQ 01/09/19 21:00 02/07/19 11:29 01/11/19 12:12 Lorazepam (Ativan 2mg/ml 1ml) 1 mg Q4H PRN IV For Anxiety 01/09/19 18:00 01/16/19 17:59 Morphine Sulfate (Morphine Sulfate) 4 mg Q4H PRN IVP Moderate Pain (Pain Scale 4-6) 01/09/19 18:00 01/14/19 17:59 01/11/19 12:47 Ondansetron HCl (Zofran) 4 mg Q6H PRN IVP Nausea & Vomiting 01/09/19 18:00 02/06/19 17:59 Patient Own Medication (Patient's Own Med) 1 ea DAILY ORAL 01/10/19 09:00 02/08/19 11:29 UNV Polyethylene Glycol (Miralax) 17 gm DAILYPRN PRN ORAL Constipation 01/09/19 18:00 02/06/19 17:59 Quetiapine Fumarate (SEROquel) 50 mg Q12HR ORAL 01/09/19 21:00 02/07/19 11:29 01/10/19 08:54 Temazepam (Restoril) 15 mg HSPRN PRN ORAL Insomnia 01/09/19 20:00 01/14/19 19:59 Vancomycin HCl (Vanco rx to dose) 1 ea DAILY PRN MISC . 01/10/19 09:00 02/06/19 20:14 Vancomycin HCl 1 gm/Dextrose 275 ml @ 183.3 mls/ hr Q12HR@0400,1600 IVPB 01/10/19 04:00 01/13/19 03:59 01/11/19 04:13 Allergies: Coded Allergies: No Known Allergies (Unverified , 03/27/14) ROS Limited/Unobtainable: No Constitutional: Reports: no symptoms HEENT: Reports: no symptoms Cardiovascular: Reports: no symptoms Respiratory: Reports: no symptoms Gastrointestinal/Abdominal: Reports: no symptoms Genitourinary: Reports: no symptoms Neurologic/Psychiatric: Reports: no symptoms Subjective 63 YO M admitted with right leg pain. Now right leg cellulitis and abscess. Cover for Int Dennis-DR Chaudhary Objective Last Vital Signs Date Time Temp Pulse Resp B/P (MAP) Pulse Ox O2 Delivery O2 Flow Rate FiO2 01/11/19 12:00 98.4 84 18 125/77 (93) 96 01/11/19 09:00 Room Air 01/11/19 07:28 21 Laboratory Tests Test 01/10/19 15:30 01/11/19 08:05 Vancomycin Level Trough 11.8 ug/mL (5.0-12.0) White Blood Count 3.6 K/UL (4.8-10.8) L Red Blood Count 4.02 M/UL (4.70-6.10) L Hemoglobin 12.2 G/DL (14.2-18.0) L Hematocrit 35.7 % (42.0-52.0) L Mean Corpuscular Volume 89 FL (80-99) Mean Corpuscular Hemoglobin 30.4 PG (27.0-31.0) Mean Corpuscular Hemoglobin Concent 34.3 G/DL (32.0-36.0) Red Cell Distribution Width 11.6 % (11.6-14.8) Platelet Count 230 K/UL (150-450) Mean Platelet Volume 4.6 FL (6.5-10.1) L Neutrophils (%) (Auto) 61.6 % (45.0-75.0) Lymphocytes (%) (Auto) 17.1 % (20.0-45.0) L Monocytes (%) (Auto) 10.7 % (1.0-10.0) H Eosinophils (%) (Auto) 9.4 % (0.0-3.0) H Basophils (%) (Auto) 1.1 % (0.0-2.0) Sodium Level 139 MMOL/L (136-145) Potassium Level 4.0 MMOL/L (3.5-5.1) Chloride Level 101 MMOL/L (98-107) Carbon Dioxide Level 30 MMOL/L (21-32) Anion Gap 8 mmol/L (5-15) Blood Urea Nitrogen 10 mg/dL (7-18) Creatinine 1.0 MG/DL (0.55-1.30) Estimat Glomerular Filtration Rate > 60 mL/min (>60) Glucose Level 259 MG/DL (74-106) H Calcium Level 8.9 MG/DL (8.5-10.1) Microbiology Date/Time Source Procedure Growth Status 01/10/19 11:45 Leg Right Gram Stain - Final Resulted 01/10/19 11:45 Leg Right Wound Culture - Preliminary NO GROWTH Resulted Intake and Output 01/10/19 01/11/19 19:00 07:00 Intake Total 110 ml 250 ml Output Total 850 ml 900 ml Balance -740 ml -650 ml Intake Oral 250 ml IV Total 110 ml Output Urine Total 850 ml 900 ml # Voids 4 # Bowel Movements 1 Objective ASSESSMENT: 1. Cellulitis of the right lower extremity. 2. History of HIV/AIDS. 3. History of intravenous drug abuse. 4. Diabetes type 2, uncontrolled. 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 7. Hepatitis C positive, currently in remission. 8. Dehydration. PLAN: 1. Admit the patient to telemetry. 2. We will follow up laboratory and cultures. 3. ID consultation. 4. Monitor blood glucose level closely. 5. Code status is Full Code. 6. DVT prophylaxis with heparin subcutaneous. 7. antibiotic = vancomycin and cefepime. Assessment/Plan Assessment/Plan ASSESSMENT: 1. Cellulitis of the right lower extremity. 2. History of HIV/AIDS. 3. History of intravenous drug abuse. 4. Diabetes type 2, uncontrolled. 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 7. Hepatitis C positive, currently in remission. 8. Dehydration. 9. Abscess right leg PLAN: 1. Admit the patient to telemetry. 2. We will follow up laboratory and cultures. 3. ID consultation. 4. Monitor blood glucose level closely. 5. Code status is Full Code. 6. DVT prophylaxis with heparin subcutaneous. 7. Broad-spectrum antibiotic with vancomycin and cefepime. 8. S/P Incision and drainage abscess right leg 01/10/19-See surgery note Mirza Martinez MD Jan 11, 2019 13:56
--- NOTE | 2019-01-11 15:32 | Surgery Progress Note ---
Surgery Progress Note Subjective Procedure Performed Incision and drainage of right leg abscess Additional Comments Patient seen and examined bedside. No acute events. States he feels better. Some pain in the incision and drainage site but otherwise comfortable. Dressings being changed. Dressing change at bedside by myself and wound without any purulent drainage and cellulitis improving. Objective Last 24 Hour Vital Signs Date Time Temp Pulse Resp B/P (MAP) Pulse Ox O2 Delivery O2 Flow Rate FiO2 01/11/19 12:00 98.4 84 18 125/77 (93) 96 01/11/19 09:00 Room Air 01/11/19 08:00 98.4 93 18 122/70 (87) 95 01/11/19 07:28 93 18 96 Room Air 21 01/11/19 04:30 98.6 88 18 114/68 (83) 95 01/11/19 00:00 98.0 99 18 124/73 (90) 96 01/10/19 21:00 Room Air 01/10/19 20:11 101 18 96 Room Air 21 01/10/19 20:00 98.2 99 20 124/82 (96) 96 01/10/19 16:00 98.4 104 20 117/77 (90) 96 I&O Intake and Output 01/10/19 01/11/19 19:00 07:00 Intake Total 110 ml 250 ml Output Total 850 ml 900 ml Balance -740 ml -650 ml Intake Oral 250 ml IV Total 110 ml Output Urine Total 850 ml 900 ml # Voids 4 # Bowel Movements 1 Dressing: saturated Wound: clean Cardiovascular: RSR Respiratory: clear Abdomen: soft, flat, tenderness, present bowel sounds, non-distended Extremities: edema, tenderness, no cyanosis, other - Proving Laboratory Tests Test 01/11/19 08:05 White Blood Count 3.6 K/UL (4.8-10.8) L Red Blood Count 4.02 M/UL (4.70-6.10) L Hemoglobin 12.2 G/DL (14.2-18.0) L Hematocrit 35.7 % (42.0-52.0) L Mean Corpuscular Volume 89 FL (80-99) Mean Corpuscular Hemoglobin 30.4 PG (27.0-31.0) Mean Corpuscular Hemoglobin Concent 34.3 G/DL (32.0-36.0) Red Cell Distribution Width 11.6 % (11.6-14.8) Platelet Count 230 K/UL (150-450) Mean Platelet Volume 4.6 FL (6.5-10.1) L Neutrophils (%) (Auto) 61.6 % (45.0-75.0) Lymphocytes (%) (Auto) 17.1 % (20.0-45.0) L Monocytes (%) (Auto) 10.7 % (1.0-10.0) H Eosinophils (%) (Auto) 9.4 % (0.0-3.0) H Basophils (%) (Auto) 1.1 % (0.0-2.0) Sodium Level 139 MMOL/L (136-145) Potassium Level 4.0 MMOL/L (3.5-5.1) Chloride Level 101 MMOL/L (98-107) Carbon Dioxide Level 30 MMOL/L (21-32) Anion Gap 8 mmol/L (5-15) Blood Urea Nitrogen 10 mg/dL (7-18) Creatinine 1.0 MG/DL (0.55-1.30) Estimat Glomerular Filtration Rate > 60 mL/min (>60) Glucose Level 259 MG/DL (74-106) H Calcium Level 8.9 MG/DL (8.5-10.1) Plan Problems: (1) Retained foreign body Assessment & Plan: 63-year-old male with retained foreign body in the lateral calf as per imaging. Patient unaware of having needle breakage or other trauma leading to such findings. Unable to identify clinically on examination. Pending further imaging. Findings: Linear metallic foreign body projects in the superficial subcutaneous fat of the lateral calf. No acute fractures. No dislocations. No soft tissue gas Impression: Metallic foreign body in the lateral superficial soft tissues No acute bony trauma (2) Cellulitis Assessment & Plan: Right lower extremity mid tibial anterior leg area of cellulitis with possible phlegmon versus abscess in the underlying soft tissue. Mild tender, erythema, warmth. Mild discomfort at the level of the knee. Multiple prior injection site tracks identified and slowly healing. MRI of knee noted, no active infection, some fluid joint CT of right leg noted with anterior tibial abscess. Continue antibiotics as per infectious disease We will follow clinically and with examination and to follow-up imaging. ID performed on 01/10/2019 see procedure note Packing dressing 3 times daily wet-to-dry gauze packing dressing Discharge planning with outpatient follow-up Thank you for allowing me to participate in patient's care will follow with recommendations Eduardo Bruce Jan 11, 2019 15:32
[2019-01-11 16:00] VITALS: BP 119/72
--- NOTE | 2019-01-11 17:19 | Infectious Diseases Prog Note ---
Assessment/Plan Assessment/Plan Abx: IV Vancomcyin 01/07- Cefepime 01/07- Assessment: R knee pain, R leg cellulitis unlikely septic arthritis given exam(full ROM) 01/09 MRI Knee: No acute fracture or osteomyelitis. Moderate knee joint effusion. Mild LCL edema which may be sprain versus infection inflammation. Soft tissue edema. No discrete abscess. 01/09 CT LE: 3.1 x 2.4 x 1.2 cm air-fluid collection and soft tissue swelling anterior to the proximal tibial diaphysis, likely representing a small abscess. Adjacent subcutaneous stranding cellulitis. -Xray R tibia/fibula: Metallic foreign body in the lateral superficial soft tissues. No acute bony trauma -xray L tibi/fibula: Posterior soft tissue opacity, most likely a focus of dystrophic calcification, less likely a small foreign body. No other significant abnormality -R knee xray: No definite suprapatellar effusion. No acute fractures. No dislocations. Joint spaces are preserved -V. dupplex: no DVT -B/l foot xray: no acute process Afebrile No leukocytosis -CXR: no acute findings HIV- Dx on 1985- currently on Symtuza and Tivicay -last HIV VL 40 and CD4 300s (per patient about 1.5 month ago) -has been on treatment for 30 years -01/09 CD4 158 Dm2 Hep C IVDA (meth abuse) -uDS + amphetamines Plan: -Continue empiric IV Vancomycin and Cefepime #5 - Bactrim DS daily for PPX -f/u cx -Monitor CBC/CMP, temperatures -MRI R knee and CT R leg -Continue ARV (Symtuza and Tivicay) Thank you for this consultation. Will continue to follow along with you. Subjective Allergies: Coded Allergies: No Known Allergies (Unverified , 03/27/14) Subjective Afebrile. Pt continues to report pain at the I&D site. No problems with his knee. Objective Vital Signs Last 24 Hour Vital Signs Date Time Temp Pulse Resp B/P (MAP) Pulse Ox O2 Delivery O2 Flow Rate FiO2 01/11/19 16:00 98.6 90 18 119/72 (88) 96 01/11/19 12:00 98.4 84 18 125/77 (93) 96 01/11/19 09:00 Room Air 01/11/19 08:00 98.4 93 18 122/70 (87) 95 01/11/19 07:28 93 18 96 Room Air 21 01/11/19 04:30 98.6 88 18 114/68 (83) 95 01/11/19 00:00 98.0 99 18 124/73 (90) 96 01/10/19 21:00 Room Air 01/10/19 20:11 101 18 96 Room Air 21 01/10/19 20:00 98.2 99 20 124/82 (96) 96 Height (Feet): 6 Height (Inches): 0.00 Weight (Pounds): 205 Objective Gen: NAD HEENT: anicteric sclera CV: RRR Resp: RRR Ext: s/p RLE I&D. dressing intact and dry. Neuro: awake. alert. interactive. Microbiology Date/Time Source Procedure Growth Status 01/10/19 11:45 Leg Right Gram Stain - Final Resulted 01/10/19 11:45 Leg Right Wound Culture - Preliminary NO GROWTH Resulted Laboratory Tests Test 01/11/19 08:05 White Blood Count 3.6 K/UL (4.8-10.8) L Red Blood Count 4.02 M/UL (4.70-6.10) L Hemoglobin 12.2 G/DL (14.2-18.0) L Hematocrit 35.7 % (42.0-52.0) L Mean Corpuscular Volume 89 FL (80-99) Mean Corpuscular Hemoglobin 30.4 PG (27.0-31.0) Mean Corpuscular Hemoglobin Concent 34.3 G/DL (32.0-36.0) Red Cell Distribution Width 11.6 % (11.6-14.8) Platelet Count 230 K/UL (150-450) Mean Platelet Volume 4.6 FL (6.5-10.1) L Neutrophils (%) (Auto) 61.6 % (45.0-75.0) Lymphocytes (%) (Auto) 17.1 % (20.0-45.0) L Monocytes (%) (Auto) 10.7 % (1.0-10.0) H Eosinophils (%) (Auto) 9.4 % (0.0-3.0) H Basophils (%) (Auto) 1.1 % (0.0-2.0) Sodium Level 139 MMOL/L (136-145) Potassium Level 4.0 MMOL/L (3.5-5.1) Chloride Level 101 MMOL/L (98-107) Carbon Dioxide Level 30 MMOL/L (21-32) Anion Gap 8 mmol/L (5-15) Blood Urea Nitrogen 10 mg/dL (7-18) Creatinine 1.0 MG/DL (0.55-1.30) Estimat Glomerular Filtration Rate > 60 mL/min (>60) Glucose Level 259 MG/DL (74-106) H Calcium Level 8.9 MG/DL (8.5-10.1) Current Medications Medications (Trade) Dose Ordered Sig/Naheed Route PRN Reason Start Time Stop Time Status Last Admin Dose Admin Acetaminophen (Tylenol) 650 mg Q4H PRN ORAL fever 01/09/19 18:00 02/06/19 17:59 Albuterol/ Ipratropium (Albuterol/ Ipratropium) 3 ml Q4H PRN HHN Shortness of Breath 01/10/19 10:00 01/13/19 09:59 Cefepime HCl 2 gm/ Dextrose 110 ml @ 220 mls/hr Q12HR@0300,1500 IV 01/10/19 03:00 01/15/19 02:59 01/11/19 14:33 Dextrose (Dextrose 50%) 25 ml Q30M PRN IV Hypoglycemia 01/09/19 18:00 02/06/19 19:59 Dextrose (Dextrose 50%) 50 ml Q30M PRN IV Hypoglycemia 01/09/19 18:00 02/06/19 19:59 Gadobutrol (Gadavist) 7.5 mmol NOW PRN IV Radiology Procedure 01/10/19 11:15 01/13/19 11:15 Heparin Sodium (Porcine) (Heparin 5000 units/ml) 5,000 units EVERY 12 HOURS SUBQ 01/09/19 21:00 02/06/19 20:59 01/11/19 08:29 Insulin Aspart (NovoLOG) BEFORE MEALS AND HS SUBQ 01/09/19 21:00 02/07/19 11:29 01/11/19 12:12 Lorazepam (Ativan 2mg/ml 1ml) 1 mg Q4H PRN IV For Anxiety 01/09/19 18:00 01/16/19 17:59 Morphine Sulfate (Morphine Sulfate) 4 mg Q4H PRN IVP Moderate Pain (Pain Scale 4-6) 01/09/19 18:00 01/14/19 17:59 01/11/19 12:47 Ondansetron HCl (Zofran) 4 mg Q6H PRN IVP Nausea & Vomiting 01/09/19 18:00 02/06/19 17:59 Patient Own Medication (Patient's Own Med) 1 ea DAILY ORAL 01/10/19 09:00 02/08/19 11:29 UNV Polyethylene Glycol (Miralax) 17 gm DAILYPRN PRN ORAL Constipation 01/09/19 18:00 02/06/19 17:59 Quetiapine Fumarate (SEROquel) 50 mg Q12HR ORAL 01/09/19 21:00 02/07/19 11:29 01/10/19 08:54 Temazepam (Restoril) 15 mg HSPRN PRN ORAL Insomnia 01/09/19 20:00 01/14/19 19:59 Vancomycin HCl (Vanco rx to dose) 1 ea DAILY PRN MISC . 01/10/19 09:00 02/06/19 20:14 Vancomycin HCl 1 gm/Dextrose 275 ml @ 183.3 mls/ hr Q12HR@0400,1600 IVPB 01/10/19 04:00 01/13/19 03:59 01/11/19 15:34 Xenia Gonzales MD Jan 11, 2019 17:19
[2019-01-11] MEDS ORDERED: Bactrim-DS 1 tab ORAL SCH (17:30)
--- NOTE | 2019-01-11 19:29 | NUR ---
HAND-OFF: Report given to Suhail SHETH.
--- NOTE | 2019-01-11 19:45 | NUR ---
NURSE NOTES: Patient in bed awake and oriented. VSS. No SOB noted. PRN pain medication given. Dressing is clean and intact. Needs attended. Due meds given. In stable condition.
[2019-01-11 20:00] VITALS: BP 128/75
[2019-01-12] VITALS: BP 124/74
[2019-01-12] MEDS: LORazepam Inj 2mg/ml 1ml IV PRN ×2 (00:20→11:33)
[2019-01-12] MEDS: Vancomycin 1 GM in D5W 275 ML IVPB SCH ×2 (03:21→15:31)
[2019-01-12] MEDS: Cefepime HCl 2 GM in D5W 110 ML IV SCH ×2 (03:21→14:44)
[2019-01-12 04:00] VITALS: BP 130/84
[2019-01-12] MEDS: NovoLOG Insulin Flexpen SUBQ SCH ×4 (06:31→21:27)
[2019-01-12 07:34] LABS: BASOPHILS % (AUTO) 0.9 % (0.0-2.0); EOSINOPHILS % (AUTO) 8.6 % (0.0-3.0); HEMATOCRIT 34.4 % (42.0-52.0); HEMOGLOBIN 11.9 G/DL (14.2-18.0); LYMPHOCYTES % (AUTO) 22.7 % (20.0-45.0); MEAN CORPUSCULAR VOLUME 88 FL (80-99); MONOCYTES % (AUTO) 14.1 % (1.0-10.0); NEUTROPHILS % (AUTO) 53.8 % (45.0-75.0); PLATELET COUNT 258 K/UL (150-450); RED BLOOD COUNT 3.92 M/UL (4.70-6.10); RED CELL DISTRIBUTION WIDTH 11.4 % (11.6-14.8); WHITE BLOOD COUNT 3.7 K/UL (4.8-10.8)
[2019-01-12 07:39] LABS: ANION GAP 8 mmol/L (5-15); BLOOD UREA NITROGEN 14 mg/dL (7-18); CALCIUM 8.9 MG/DL (8.5-10.1); CARBON DIOXIDE 28 MMOL/L (21-32); CHLORIDE 103 MMOL/L (98-107); POTASSIUM 4.2 MMOL/L (3.5-5.1); SODIUM 139 MMOL/L (136-145)
[2019-01-12 08:00] VITALS: BP 133/89
--- NOTE | 2019-01-12 08:00 | NUR ---
NURSE NOTES: Patient received from Suhail Rondon RN. Patient stable AOx4 with no complaints and no s/sx of distress. RR even and unlabored on RA. Patient requesting IV dressing change and wants to be on his home medications. Will reconcile medications and contact MD later. Bed low and locked. Call light within reach. Will continue to monitor.
[2019-01-12] MEDS: Heparin 5000 units/ml inj SUBQ SCH ×2 (08:47→21:26)
[2019-01-12] MEDS: Morphine Sulfate 4mg/ml Inj (IV USE ONLY) IVP PRN (10:32)
--- NOTE | 2019-01-12 11:35 | NUR ---
CASE MANAGEMENT:REVIEW 01/12/19 SI: SEPSIS. CELLULITIS. HYPERGLYCEMIA RETAINED FOREIGN BODY 98.0 85 18 133/89 99% ON RA WBC 3.7; BG 179; URINE(+) AMPHETAMINES IS: IV VANCOMYCIN Q12HR IV CEFEPIME Q12HR HEPARIN SQ Q12HR NOVOLOG SQ AC&HS IV MORPHINE SULFATE Q4/PRN : 3E MED SURG DCP; FROM HOME PLAN: F/U MRI
[2019-01-12 12:00] VITALS: BP 113/81
--- NOTE | 2019-01-12 12:14 | Pulmonology Progress Note ---
Assessment/Plan Problems: (1) Cellulitis (2) Phlebitis (3) Diabetes mellitus (4) Substance abuse (5) Hysterical personality disorder (6) Noncompliance (7) HIV (human immunodeficiency virus infection) Assessment/Plan asking for PT/ot might need to go to a rehab facility improving continue abx check cultures continue psychiatric meds Subjective ROS Limited/Unobtainable: No Constitutional: Reports: no symptoms HEENT: Repors: no symptoms Allergies: Coded Allergies: No Known Allergies (Unverified , 03/27/14) Objective Last 24 Hour Vital Signs Date Time Temp Pulse Resp B/P (MAP) Pulse Ox O2 Delivery O2 Flow Rate FiO2 01/12/19 12:00 98.4 83 18 113/81 (92) 99 01/12/19 09:00 Room Air 01/12/19 08:00 98.0 85 18 133/89 (104) 99 01/12/19 04:00 98.3 87 18 130/84 (99) 98 01/12/19 00:00 97.9 97 18 124/74 (91) 96 01/11/19 21:00 Room Air 01/11/19 20:00 98.5 89 18 128/75 (92) 95 01/11/19 19:35 90 20 96 Room Air 21 01/11/19 16:00 98.6 90 18 119/72 (88) 96 Intake and Output 01/11/19 01/12/19 19:00 07:00 Intake Total 800 ml 600 ml Balance 800 ml 600 ml Intake Oral 800 ml 600 ml # Voids 4 5 # Bowel Movements 1 General Appearance: WD/WN HEENT: normocephalic, atraumatic Respiratory/Chest: chest wall non-tender, normal breath sounds Cardiovascular: normal peripheral pulses, normal rate Abdomen: normal bowel sounds, no organomegaly Extremities: no cyanosis Skin: no lesions Microbiology Date/Time Source Procedure Growth Status 01/10/19 11:45 Leg Right Gram Stain - Final Resulted 01/10/19 11:45 Wound Culture - Preliminary Staphylococcus Sp Coag Neg Resulted Laboratory Tests 01/12/19 05:50: White Blood Count 3.7L, Red Blood Count 3.92L, Hemoglobin 11.9L, Hematocrit 34.4L, Mean Corpuscular Volume 88, Mean Corpuscular Hemoglobin 30.3, Mean Corpuscular Hemoglobin Concent 34.4, Red Cell Distribution Width 11.4L, Platelet Count 258, Mean Platelet Volume 4.5L, Neutrophils (%) (Auto) 53.8, Lymphocytes (%) (Auto) 22.7, Monocytes (%) (Auto) 14.1H, Eosinophils (%) (Auto) 8.6H, Basophils (%) (Auto) 0.9, Sodium Level 139, Potassium Level 4.2, Chloride Level 103, Carbon Dioxide Level 28, Anion Gap 8, Blood Urea Nitrogen 14, Creatinine 1.0, Estimat Glomerular Filtration Rate > 60, Glucose Level 179H, Calcium Level 8.9 Current Medications Medications (Trade) Dose Ordered Sig/Naheed Route PRN Reason Start Time Stop Time Status Last Admin Dose Admin Acetaminophen (Tylenol) 650 mg Q4H PRN ORAL fever 01/09/19 18:00 02/06/19 17:59 Albuterol/ Ipratropium (Albuterol/ Ipratropium) 3 ml Q4H PRN HHN Shortness of Breath 01/10/19 10:00 01/13/19 09:59 Cefepime HCl 2 gm/ Dextrose 110 ml @ 220 mls/hr Q12HR@0300,1500 IV 01/10/19 03:00 01/15/19 02:59 01/12/19 03:21 Dextrose (Dextrose 50%) 25 ml Q30M PRN IV Hypoglycemia 01/09/19 18:00 02/06/19 19:59 Dextrose (Dextrose 50%) 50 ml Q30M PRN IV Hypoglycemia 01/09/19 18:00 02/06/19 19:59 Gadobutrol (Gadavist) 7.5 mmol NOW PRN IV Radiology Procedure 01/10/19 11:15 01/13/19 11:15 Heparin Sodium (Porcine) (Heparin 5000 units/ml) 5,000 units EVERY 12 HOURS SUBQ 01/09/19 21:00 02/06/19 20:59 01/12/19 08:47 Insulin Aspart (NovoLOG) BEFORE MEALS AND HS SUBQ 01/09/19 21:00 02/07/19 11:29 01/12/19 11:34 Lorazepam (Ativan 2mg/ml 1ml) 1 mg Q4H PRN IV For Anxiety 01/09/19 18:00 01/16/19 17:59 01/12/19 11:33 Morphine Sulfate (Morphine Sulfate) 4 mg Q4H PRN IVP Moderate Pain (Pain Scale 4-6) 01/09/19 18:00 01/14/19 17:59 01/12/19 10:32 Ondansetron HCl (Zofran) 4 mg Q6H PRN IVP Nausea & Vomiting 01/09/19 18:00 02/06/19 17:59 Patient Own Medication (Patient's Own Med) 1 ea DAILY ORAL 01/10/19 09:00 02/08/19 11:29 UNV Polyethylene Glycol (Miralax) 17 gm DAILYPRN PRN ORAL Constipation 01/09/19 18:00 02/06/19 17:59 Quetiapine Fumarate (SEROquel) 50 mg Q12HR ORAL 01/09/19 21:00 02/07/19 11:29 01/10/19 08:54 Temazepam (Restoril) 15 mg HSPRN PRN ORAL Insomnia 01/09/19 20:00 01/14/19 19:59 Vancomycin HCl (Vanco rx to dose) 1 ea DAILY PRN MISC . 01/10/19 09:00 02/06/19 20:14 Vancomycin HCl 1 gm/Dextrose 275 ml @ 183.3 mls/ hr Q12HR@0400,1600 IVPB 01/10/19 04:00 01/15/19 03:59 01/12/19 03:21 Kelly Mcintosh MD Jan 12, 2019 12:14
--- NOTE | 2019-01-12 13:00 | NUR ---
NURSE NOTES: Dressing to RT leg changed.
--- NOTE | 2019-01-12 13:08 | Surgery Progress Note ---
Surgery Progress Note Subjective Procedure Performed Incision and drainage of right leg abscess Symptoms: improved, tolerating diet, voiding well, passing flatus, BM, pain decreased Additional Comments states doing better dressings changed exam improving edema improved cellulitis improved wound stable / improving Objective Last 24 Hour Vital Signs Date Time Temp Pulse Resp B/P (MAP) Pulse Ox O2 Delivery O2 Flow Rate FiO2 01/12/19 12:00 98.4 83 18 113/81 (92) 99 01/12/19 09:00 Room Air 01/12/19 08:00 98.0 85 18 133/89 (104) 99 01/12/19 04:00 98.3 87 18 130/84 (99) 98 01/12/19 00:00 97.9 97 18 124/74 (91) 96 01/11/19 21:00 Room Air 01/11/19 20:00 98.5 89 18 128/75 (92) 95 01/11/19 19:35 90 20 96 Room Air 21 01/11/19 16:00 98.6 90 18 119/72 (88) 96 I&O Intake and Output 01/11/19 01/12/19 19:00 07:00 Intake Total 800 ml 600 ml Balance 800 ml 600 ml Intake Oral 800 ml 600 ml # Voids 4 5 # Bowel Movements 1 Dressing: saturated Wound: clean Cardiovascular: RSR Respiratory: clear Abdomen: soft, flat, non-tender, present bowel sounds, non-distended Extremities: edema, tenderness, other - improved Laboratory Tests Test 01/12/19 05:50 White Blood Count 3.7 K/UL (4.8-10.8) L Red Blood Count 3.92 M/UL (4.70-6.10) L Hemoglobin 11.9 G/DL (14.2-18.0) L Hematocrit 34.4 % (42.0-52.0) L Mean Corpuscular Volume 88 FL (80-99) Mean Corpuscular Hemoglobin 30.3 PG (27.0-31.0) Mean Corpuscular Hemoglobin Concent 34.4 G/DL (32.0-36.0) Red Cell Distribution Width 11.4 % (11.6-14.8) L Platelet Count 258 K/UL (150-450) Mean Platelet Volume 4.5 FL (6.5-10.1) L Neutrophils (%) (Auto) 53.8 % (45.0-75.0) Lymphocytes (%) (Auto) 22.7 % (20.0-45.0) Monocytes (%) (Auto) 14.1 % (1.0-10.0) H Eosinophils (%) (Auto) 8.6 % (0.0-3.0) H Basophils (%) (Auto) 0.9 % (0.0-2.0) Sodium Level 139 MMOL/L (136-145) Potassium Level 4.2 MMOL/L (3.5-5.1) Chloride Level 103 MMOL/L (98-107) Carbon Dioxide Level 28 MMOL/L (21-32) Anion Gap 8 mmol/L (5-15) Blood Urea Nitrogen 14 mg/dL (7-18) Creatinine 1.0 MG/DL (0.55-1.30) Estimat Glomerular Filtration Rate > 60 mL/min (>60) Glucose Level 179 MG/DL (74-106) H Calcium Level 8.9 MG/DL (8.5-10.1) Plan Problems: (1) Retained foreign body Assessment & Plan: 63-year-old male with retained foreign body in the lateral calf as per imaging. Patient unaware of having needle breakage or other trauma leading to such findings. Unable to identify clinically on examination. Pending further imaging. Findings: Linear metallic foreign body projects in the superficial subcutaneous fat of the lateral calf. No acute fractures. No dislocations. No soft tissue gas Impression: Metallic foreign body in the lateral superficial soft tissues No acute bony trauma outpatient f/u and management (2) Cellulitis Assessment & Plan: Right lower extremity mid tibial anterior leg area of cellulitis with possible phlegmon versus abscess in the underlying soft tissue. Mild tender, erythema, warmth. Mild discomfort at the level of the knee. Multiple prior injection site tracks identified and slowly healing. MRI of knee noted, no active infection, some fluid joint CT of right leg noted with anterior tibial abscess. Continue antibiotics as per infectious disease We will follow clinically and with examination and to follow-up imaging. ID performed on 01/10/2019 see procedure note Packing dressing 3 times daily wet-to-dry gauze packing dressing Discharge planning with outpatient follow-up cont with current care upon dc Thank you for allowing me to participate in patient's care will follow with recommendations Eduardo Bruce Jan 12, 2019 13:08
--- NOTE | 2019-01-12 13:37 | NUR ---
DISCHARGE PLANNING: PATIENT HAS BEEN REFERRED TO [facility] FAXED TO: 1# [facility] T: [phone] F: [phone] 2#[facility] T: [phone] F:[phone] PENDING ACCEPTANCE
--- NOTE | 2019-01-12 14:14 | NUR ---
RD ASSESSMENT & RECOMMENDATIONS SEE CARE ACTIVITY FOR COMPLETE ASSESSMENT DAILY ESTIMATED NEEDS: Needs based on HIV, abscess/ 83kg abw 25-30 kcals/kg 3770-1188 total kcals 1-1.5 g protein/kg 83-124 g total protein 25-30 mL/kg 5051-8418 total fluid mLs NUTRITION DIAGNOSIS: Increased kcal/prot needs R/T catabolic dx as evidenced by HIV+, CD4 count of 158. CURRENT DIET:CCHO MED PO DIET RECOMMENDATIONS: CCHO MED, double protein portions ADDITIONAL RECOMMENDATIONS: * Standing wt for accurate CBW * High protein/ 1 carb snacks in b/w meals * Wound eval for rt foot + sacral wound photos -> rec MVI x 1, Vit C 250mg QD
--- NOTE | 2019-01-12 14:36 | Infectious Diseases Prog Note ---
Assessment/Plan Assessment/Plan Abx: IV Vancomcyin 01/07- Cefepime 01/07- Bactrim DS daily Assessment: R knee pain, R leg cellulitis unlikely septic arthritis given exam(full ROM) 01/09 MRI Knee: No acute fracture or osteomyelitis. Moderate knee joint effusion. Mild LCL edema which may be sprain versus infection inflammation. Soft tissue edema. No discrete abscess. 01/09 CT LE: 3.1 x 2.4 x 1.2 cm air-fluid collection and soft tissue swelling anterior to the proximal tibial diaphysis, likely representing a small abscess. Adjacent subcutaneous stranding cellulitis. -Xray R tibia/fibula: Metallic foreign body in the lateral superficial soft tissues. No acute bony trauma -xray L tibi/fibula: Posterior soft tissue opacity, most likely a focus of dystrophic calcification, less likely a small foreign body. No other significant abnormality -R knee xray: No definite suprapatellar effusion. No acute fractures. No dislocations. Joint spaces are preserved -V. dupplex: no DVT -B/l foot xray: no acute process -01/10 I&D cx: CoNS Afebrile No leukocytosis -CXR: no acute findings HIV- Dx on 1985- currently on Symtuza and Tivicay -last HIV VL 40 and CD4 300s (per patient about 1.5 month ago) -has been on treatment for 30 years -01/09 CD4 158 Dm2 Hep C IVDA (meth abuse) -uDS + amphetamines Plan: - Continue empiric IV Vancomycin and Cefepime #6 - Bactrim DS daily for PPX -f/u cx -Monitor CBC/CMP, temperatures -MRI R knee and CT R leg -Continue ARV (Symtuza and Tivicay) Thank you for this consultation. Will continue to follow along with you. Subjective Allergies: Coded Allergies: No Known Allergies (Unverified , 03/27/14) Subjective Afebrile. Still with pain. No cough, sob, abdominal pain, diarrhea Objective Vital Signs Last 24 Hour Vital Signs Date Time Temp Pulse Resp B/P (MAP) Pulse Ox O2 Delivery O2 Flow Rate FiO2 01/12/19 12:00 98.4 83 18 113/81 (92) 99 01/12/19 09:00 Room Air 01/12/19 08:00 98.0 85 18 133/89 (104) 99 01/12/19 04:00 98.3 87 18 130/84 (99) 98 01/12/19 00:00 97.9 97 18 124/74 (91) 96 01/11/19 21:00 Room Air 01/11/19 20:00 98.5 89 18 128/75 (92) 95 01/11/19 19:35 90 20 96 Room Air 21 01/11/19 16:00 98.6 90 18 119/72 (88) 96 Height (Feet): 6 Height (Inches): 0.00 Weight (Pounds): 205 Objective Gen: NAD HEENT: anicteric sclera CV: RRR Resp: RRR Ext: s/p RLE I&D. dressing intact and dry. Neuro: awake. alert. interactive. Microbiology Date/Time Source Procedure Growth Status 01/10/19 11:45 Leg Right Gram Stain - Final Resulted 01/10/19 11:45 Wound Culture - Preliminary Staphylococcus Sp Coag Neg Resulted Laboratory Tests Test 01/12/19 05:50 White Blood Count 3.7 K/UL (4.8-10.8) L Red Blood Count 3.92 M/UL (4.70-6.10) L Hemoglobin 11.9 G/DL (14.2-18.0) L Hematocrit 34.4 % (42.0-52.0) L Mean Corpuscular Volume 88 FL (80-99) Mean Corpuscular Hemoglobin 30.3 PG (27.0-31.0) Mean Corpuscular Hemoglobin Concent 34.4 G/DL (32.0-36.0) Red Cell Distribution Width 11.4 % (11.6-14.8) L Platelet Count 258 K/UL (150-450) Mean Platelet Volume 4.5 FL (6.5-10.1) L Neutrophils (%) (Auto) 53.8 % (45.0-75.0) Lymphocytes (%) (Auto) 22.7 % (20.0-45.0) Monocytes (%) (Auto) 14.1 % (1.0-10.0) H Eosinophils (%) (Auto) 8.6 % (0.0-3.0) H Basophils (%) (Auto) 0.9 % (0.0-2.0) Sodium Level 139 MMOL/L (136-145) Potassium Level 4.2 MMOL/L (3.5-5.1) Chloride Level 103 MMOL/L (98-107) Carbon Dioxide Level 28 MMOL/L (21-32) Anion Gap 8 mmol/L (5-15) Blood Urea Nitrogen 14 mg/dL (7-18) Creatinine 1.0 MG/DL (0.55-1.30) Estimat Glomerular Filtration Rate > 60 mL/min (>60) Glucose Level 179 MG/DL (74-106) H Calcium Level 8.9 MG/DL (8.5-10.1) Current Medications Medications (Trade) Dose Ordered Sig/Naheed Route PRN Reason Start Time Stop Time Status Last Admin Dose Admin Acetaminophen (Tylenol) 650 mg Q4H PRN ORAL fever 01/09/19 18:00 02/06/19 17:59 Albuterol/ Ipratropium (Albuterol/ Ipratropium) 3 ml Q4H PRN HHN Shortness of Breath 01/10/19 10:00 01/13/19 09:59 Cefepime HCl 2 gm/ Dextrose 110 ml @ 220 mls/hr Q12HR@0300,1500 IV 01/10/19 03:00 01/15/19 02:59 01/12/19 03:21 Dextrose (Dextrose 50%) 25 ml Q30M PRN IV Hypoglycemia 01/09/19 18:00 02/06/19 19:59 Dextrose (Dextrose 50%) 50 ml Q30M PRN IV Hypoglycemia 01/09/19 18:00 02/06/19 19:59 Gadobutrol (Gadavist) 7.5 mmol NOW PRN IV Radiology Procedure 01/10/19 11:15 01/13/19 11:15 Heparin Sodium (Porcine) (Heparin 5000 units/ml) 5,000 units EVERY 12 HOURS SUBQ 01/09/19 21:00 02/06/19 20:59 01/12/19 08:47 Insulin Aspart (NovoLOG) BEFORE MEALS AND HS SUBQ 01/09/19 21:00 02/07/19 11:29 01/12/19 11:34 Lorazepam (Ativan 2mg/ml 1ml) 1 mg Q4H PRN IV For Anxiety 01/09/19 18:00 01/16/19 17:59 01/12/19 11:33 Morphine Sulfate (Morphine Sulfate) 4 mg Q4H PRN IVP Moderate Pain (Pain Scale 4-6) 01/09/19 18:00 01/14/19 17:59 01/12/19 10:32 Ondansetron HCl (Zofran) 4 mg Q6H PRN IVP Nausea & Vomiting 01/09/19 18:00 02/06/19 17:59 Patient Own Medication (Patient's Own Med) 1 ea DAILY ORAL 01/10/19 09:00 02/08/19 11:29 UNV Polyethylene Glycol (Miralax) 17 gm DAILYPRN PRN ORAL Constipation 01/09/19 18:00 02/06/19 17:59 Quetiapine Fumarate (SEROquel) 50 mg Q12HR ORAL 01/09/19 21:00 02/07/19 11:29 01/10/19 08:54 Temazepam (Restoril) 15 mg HSPRN PRN ORAL Insomnia 01/09/19 20:00 01/14/19 19:59 Vancomycin HCl (Vanco rx to dose) 1 ea DAILY PRN MISC . 01/10/19 09:00 02/06/19 20:14 Vancomycin HCl 1 gm/Dextrose 275 ml @ 183.3 mls/ hr Q12HR@0400,1600 IVPB 01/10/19 04:00 01/15/19 03:59 01/12/19 03:21 Xenia Gonzales MD Jan 12, 2019 14:36
[2019-01-12] MEDS: Bactrim-DS 1 tab ORAL SCH (15:23)
[2019-01-12 15:59] VITALS: BP 133/72
[2019-01-12] MEDS: TIVICAY 50 MG ORAL SCH (16:35)
[2019-01-12] MEDS: SYMTUZA ORAL SCH (16:36)
--- NOTE | 2019-01-12 17:06 | Cardiology Report ---
APPROVED REPORT EKG Measurement Heart [id number] Sinus tachycardia Low voltage QRS Borderline ECG
--- NOTE | 2019-01-12 17:28 | Internal Med Progress Note ---
Subjective Date of Service: Jan 12, 2019 Physician Name Mirza Martinez Attending Physician Jonathon Chaudhary MD Current Medications Medications (Trade) Dose Ordered Sig/Naheed Route PRN Reason Start Time Stop Time Status Last Admin Dose Admin Acetaminophen (Tylenol) 650 mg Q4H PRN ORAL fever 01/09/19 18:00 02/06/19 17:59 Albuterol/ Ipratropium (Albuterol/ Ipratropium) 3 ml Q4H PRN HHN Shortness of Breath 01/10/19 10:00 01/13/19 09:59 Cefepime HCl 2 gm/ Dextrose 110 ml @ 220 mls/hr Q12HR@0300,1500 IV 01/10/19 03:00 01/15/19 02:59 01/12/19 14:44 Dextrose (Dextrose 50%) 25 ml Q30M PRN IV Hypoglycemia 01/09/19 18:00 02/06/19 19:59 Dextrose (Dextrose 50%) 50 ml Q30M PRN IV Hypoglycemia 01/09/19 18:00 02/06/19 19:59 Gadobutrol (Gadavist) 7.5 mmol NOW PRN IV Radiology Procedure 01/10/19 11:15 01/13/19 11:15 Heparin Sodium (Porcine) (Heparin 5000 units/ml) 5,000 units EVERY 12 HOURS SUBQ 01/09/19 21:00 02/06/19 20:59 01/12/19 08:47 Insulin Aspart (NovoLOG) BEFORE MEALS AND HS SUBQ 01/09/19 21:00 02/07/19 11:29 01/12/19 16:37 Lorazepam (Ativan 2mg/ml 1ml) 1 mg Q4H PRN IV For Anxiety 01/09/19 18:00 01/16/19 17:59 01/12/19 11:33 Morphine Sulfate (Morphine Sulfate) 4 mg Q4H PRN IVP Moderate Pain (Pain Scale 4-6) 01/09/19 18:00 01/14/19 17:59 01/12/19 10:32 Ondansetron HCl (Zofran) 4 mg Q6H PRN IVP Nausea & Vomiting 01/09/19 18:00 02/06/19 17:59 Patient Own Medication (Patient's Own Med) 1 ea DAILY ORAL 01/12/19 17:00 02/11/19 16:59 01/12/19 16:35 Patient Own Medication (Patient's Own Med) 1 ea DAILY ORAL 01/12/19 17:00 02/11/19 16:59 01/12/19 16:36 Polyethylene Glycol (Miralax) 17 gm DAILYPRN PRN ORAL Constipation 01/09/19 18:00 02/06/19 17:59 Quetiapine Fumarate (SEROquel) 50 mg Q12HR ORAL 01/09/19 21:00 02/07/19 11:29 01/10/19 08:54 Temazepam (Restoril) 15 mg HSPRN PRN ORAL Insomnia 01/09/19 20:00 01/14/19 19:59 Trimethoprim/ Sulfamethoxazole (Bactrim-DS) 1 tab DAILY ORAL 01/12/19 15:30 01/17/19 09:01 01/12/19 15:23 Vancomycin HCl (Vanco rx to dose) 1 ea DAILY PRN MISC . 01/10/19 09:00 02/06/19 20:14 Vancomycin HCl 1 gm/Dextrose 275 ml @ 183.3 mls/ hr Q12HR@0400,1600 IVPB 01/10/19 04:00 01/15/19 03:59 01/12/19 15:31 Allergies: Coded Allergies: No Known Allergies (Unverified , 03/27/14) ROS Limited/Unobtainable: No Constitutional: Reports: no symptoms HEENT: Reports: no symptoms Cardiovascular: Reports: no symptoms Respiratory: Reports: no symptoms Gastrointestinal/Abdominal: Reports: no symptoms Genitourinary: Reports: no symptoms Neurologic/Psychiatric: Reports: no symptoms Subjective 63 YO M admitted with right leg pain. Now right leg cellulitis and abscess. Cover for Int Med-DR Chaudhary Objective Last Vital Signs Date Time Temp Pulse Resp B/P (MAP) Pulse Ox O2 Delivery O2 Flow Rate FiO2 01/12/19 15:59 97.1 80 19 133/72 (92) 99 01/12/19 09:00 Room Air 01/11/19 19:35 21 Laboratory Tests Test 01/12/19 05:50 White Blood Count 3.7 K/UL (4.8-10.8) L Red Blood Count 3.92 M/UL (4.70-6.10) L Hemoglobin 11.9 G/DL (14.2-18.0) L Hematocrit 34.4 % (42.0-52.0) L Mean Corpuscular Volume 88 FL (80-99) Mean Corpuscular Hemoglobin 30.3 PG (27.0-31.0) Mean Corpuscular Hemoglobin Concent 34.4 G/DL (32.0-36.0) Red Cell Distribution Width 11.4 % (11.6-14.8) L Platelet Count 258 K/UL (150-450) Mean Platelet Volume 4.5 FL (6.5-10.1) L Neutrophils (%) (Auto) 53.8 % (45.0-75.0) Lymphocytes (%) (Auto) 22.7 % (20.0-45.0) Monocytes (%) (Auto) 14.1 % (1.0-10.0) H Eosinophils (%) (Auto) 8.6 % (0.0-3.0) H Basophils (%) (Auto) 0.9 % (0.0-2.0) Sodium Level 139 MMOL/L (136-145) Potassium Level 4.2 MMOL/L (3.5-5.1) Chloride Level 103 MMOL/L (98-107) Carbon Dioxide Level 28 MMOL/L (21-32) Anion Gap 8 mmol/L (5-15) Blood Urea Nitrogen 14 mg/dL (7-18) Creatinine 1.0 MG/DL (0.55-1.30) Estimat Glomerular Filtration Rate > 60 mL/min (>60) Glucose Level 179 MG/DL (74-106) H Calcium Level 8.9 MG/DL (8.5-10.1) Microbiology Date/Time Source Procedure Growth Status 01/10/19 11:45 Leg Right Gram Stain - Final Resulted 01/10/19 11:45 Wound Culture - Preliminary Staphylococcus Sp Coag Neg Resulted Intake and Output 01/11/19 01/12/19 19:00 07:00 Intake Total 800 ml 600 ml Balance 800 ml 600 ml Intake Oral 800 ml 600 ml # Voids 4 5 # Bowel Movements 1 Objective ASSESSMENT: 1. Cellulitis of the right lower extremity. 2. History of HIV/AIDS. 3. History of intravenous drug abuse. 4. Diabetes type 2, uncontrolled. 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 7. Hepatitis C positive, currently in remission. 8. Dehydration. PLAN: 1. Admit the patient to telemetry. 2. We will follow up laboratory and cultures. 3. ID consultation. 4. Monitor blood glucose level closely. 5. Code status is Full Code. 6. DVT prophylaxis with heparin subcutaneous. 7. antibiotic = vancomycin and cefepime. Assessment/Plan Assessment/Plan ASSESSMENT: 1. Cellulitis of the right lower extremity. 2. History of HIV/AIDS. 3. History of intravenous drug abuse. 4. Diabetes type 2, uncontrolled. 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 7. Hepatitis C positive, currently in remission. 8. Dehydration. 9. Abscess right leg PLAN: 1. Admit the patient to telemetry. 2. We will follow up laboratory and cultures. 3. ID consultation. 4. Monitor blood glucose level closely. 5. Code status is Full Code. 6. DVT prophylaxis with heparin subcutaneous. 7. Broad-spectrum antibiotic with vancomycin and cefepime. 8. S/P Incision and drainage abscess right leg 01/10/19-See surgery note Mirza Martinez MD Jan 12, 2019 17:28
[2019-01-12] MEDS ORDERED: NS 275ml ONE (17:41)
--- NOTE | 2019-01-12 19:30 | NUR ---
NURSE NOTES: Patient received from Awilda SHETH. Patient in bed awake and oriented. VSS. No SOB noted. Dressing is clean and dry. No signs of pain at this time. Needs attended. Call light within reach. Bed is locked and in low position. In stable condition.
--- NOTE | 2019-01-12 19:30 | NUR ---
HAND-OFF: Report given to Suhail Rondon. Patient stable. Dressing changed x2 on my shift.
[2019-01-12 20:00] VITALS: BP 122/74
[2019-01-13 04:00] VITALS: BP 128/80
[2019-01-13] MEDS: Cefepime HCl 2 GM in D5W 110 ML IV SCH ×2 (04:20→15:27)
[2019-01-13] MEDS: Vancomycin 1 GM in D5W 275 ML IVPB SCH ×2 (04:20→16:12)
[2019-01-13] MEDS: NovoLOG Insulin Flexpen SUBQ SCH ×3 (06:40→16:58)
[2019-01-13 07:11] LABS: BASOPHILS % (AUTO) 0.7 % (0.0-2.0); HEMOGLOBIN 12.2 G/DL (14.2-18.0); LYMPHOCYTES % (AUTO) 28.1 % (20.0-45.0); MEAN CORPUSCULAR VOLUME 87 FL (80-99); MONOCYTES % (AUTO) 15.1 % (1.0-10.0); NEUTROPHILS % (AUTO) 51.2 % (45.0-75.0); PLATELET COUNT 264 K/UL (150-450); RED BLOOD COUNT 4.04 M/UL (4.70-6.10); RED CELL DISTRIBUTION WIDTH 11.6 % (11.6-14.8); WHITE BLOOD COUNT 3.9 K/UL (4.8-10.8)
[2019-01-13 07:16] LABS: ALANINE AMINOTRANSFERASE 27 U/L (12-78); ALBUMIN 2.5 G/DL (3.4-5.0); ALBUMIN/GLOBULIN RATIO 0.5 (1.0-2.7); ALKALINE PHOSPHATASE 110 U/L (46-116); ANION GAP 8 mmol/L (5-15); ASPARTATE AMINO TRANSFERASE 23 U/L (15-37); BILIRUBIN,TOTAL 0.3 MG/DL (0.2-1.0); BLOOD UREA NITROGEN 17 mg/dL (7-18); CALCIUM 9.2 MG/DL (8.5-10.1); CARBON DIOXIDE 28 MMOL/L (21-32); CHLORIDE 102 MMOL/L (98-107); CREATININE 1.2 MG/DL (0.55-1.30); PHOSPHORUS 2.9 MG/DL (2.5-4.9); POTASSIUM 4.4 MMOL/L (3.5-5.1); SODIUM 138 MMOL/L (136-145)
--- NOTE | 2019-01-13 07:52 | NUR ---
NURSE NOTES: awake/alert. rt cuevas dressing dry and intact. pain scale 4/10. in no acute distress.
[2019-01-13 08:00] VITALS: BP 113/64
[2019-01-13] MEDS: SYMTUZA ORAL SCH (08:33)
[2019-01-13] MEDS: TIVICAY 50 MG ORAL SCH (08:33)
[2019-01-13] MEDS: Bactrim-DS 1 tab ORAL SCH (08:34)
[2019-01-13] MEDS: Heparin 5000 units/ml inj SUBQ SCH (08:35)
[2019-01-13] MEDS: Morphine Sulfate 4mg/ml Inj (IV USE ONLY) IVP PRN (08:42)
--- NOTE | 2019-01-13 09:15 | NUR ---
PT EVALUATION NOTE Patient seen for initial evaluation, see complete evaluation for details. Patient presents with generalized weakness and impaired balance which affects patient's ability to perform mobility tasks safely. Patient requires SBA for transfers and ambulation. Patient able to ambulate with FWW x 125 ft, has tendency to have wobbling bilateral knees in standing. Patient lives in a second floor apartment with 2 flights of stairs to access apartment. Patient will benefit from skilled inpatient PT intervention to address strength, balance and safety including stair training for improved level of functional mobility and increased safety. Recommend discharge to SNF for further rehab once medically cleared by MD. Recommend FWW for transfers and ambulation for increased stability. Addendum: 01/13/19 at 1327 by DOMONIQUE MENENDEZ PT Amended: Links added.
--- NOTE | 2019-01-13 09:59 | NUR ---
NURSE NOTES: wound dressing to rt cuevas done. iodoform gauze packing done, covered with 4x4 and secured with paper tape.
[2019-01-13 12:00] VITALS: BP 110/64
--- NOTE | 2019-01-13 12:01 | Pulmonology Progress Note ---
Assessment/Plan Problems: (1) Cellulitis (2) Phlebitis (3) Diabetes mellitus (4) Substance abuse (5) Hysterical personality disorder (6) Noncompliance (7) HIV (human immunodeficiency virus infection) Assessment/Plan feeling better might need to go to a rehab facility improving continue abx check cultures continue psychiatric meds Subjective ROS Limited/Unobtainable: No Constitutional: Reports: no symptoms HEENT: Repors: no symptoms Respiratory: Reports: no symptoms Allergies: Coded Allergies: No Known Allergies (Unverified , 03/27/14) Objective Last 24 Hour Vital Signs Date Time Temp Pulse Resp B/P (MAP) Pulse Ox O2 Delivery O2 Flow Rate FiO2 01/13/19 09:15 Room Air 01/13/19 09:12 97.4 01/13/19 08:00 97.4 77 20 113/64 (80) 97 01/13/19 04:00 97.3 91 18 128/80 (96) 96 01/12/19 21:00 Room Air 01/12/19 20:00 97.4 82 19 122/74 (90) 97 01/12/19 19:48 88 18 95 Room Air 21 01/12/19 15:59 97.1 80 19 133/72 (92) 99 01/12/19 12:00 98.4 83 18 113/81 (92) 99 Intake and Output 01/12/19 01/13/19 18:59 06:59 Intake Total 1345.0 ml 800 ml Output Total 2550 ml 1300 ml Balance -1205.0 ml -500 ml Intake Oral 960 ml 800 ml IV Total 385.0 ml Output Urine Total 2550 ml 1300 ml # Voids 8 4 General Appearance: WD/WN HEENT: normocephalic, atraumatic Respiratory/Chest: chest wall non-tender, normal breath sounds Cardiovascular: normal peripheral pulses, normal rate Abdomen: normal bowel sounds, soft, non tender, no scars Genitourinary: normal external genitalia Skin: no ulcers Neurologic/Psychiatric: pediatric dentist II-XII grossly normal Lymphatic: no neck adenopathy Laboratory Tests 01/13/19 05:05: White Blood Count 3.9L, Red Blood Count 4.04L, Hemoglobin 12.2L, Hematocrit 35.0L, Mean Corpuscular Volume 87, Mean Corpuscular Hemoglobin 30.3, Mean Corpuscular Hemoglobin Concent 34.9, Red Cell Distribution Width 11.6, Platelet Count 264, Mean Platelet Volume 4.4L, Neutrophils (%) (Auto) 51.2, Lymphocytes ( %) (Auto) 28.1, Monocytes (%) (Auto) 15.1H, Eosinophils (%) (Auto) 5.0H, Basophils (%) (Auto) 0.7, Erythrocyte Sedimentation Rate 50H, Sodium Level 138, Potassium Level 4.4, Chloride Level 102, Carbon Dioxide Level 28, Anion Gap 8, Blood Urea Nitrogen 17, Creatinine 1.2, Estimat Glomerular Filtration Rate > 60 , Glucose Level 280#H, Calcium Level 9.2, Phosphorus Level 2.9, Magnesium Level 1.9, Total Bilirubin 0.3, Aspartate Amino Transf (AST/SGOT) 23, Alanine Aminotransferase (ALT/SGPT) 27, Alkaline Phosphatase 110, C-Reactive Protein, Quantitative 1.7H, Total Protein 7.4, Albumin 2.5L, Globulin 4.9, Albumin/ Globulin Ratio 0.5L Current Medications Medications (Trade) Dose Ordered Sig/Naheed Route PRN Reason Start Time Stop Time Status Last Admin Dose Admin Acetaminophen (Tylenol) 650 mg Q4H PRN ORAL fever 01/09/19 18:00 02/06/19 17:59 Cefepime HCl 2 gm/ Dextrose 110 ml @ 220 mls/hr Q12HR@0300,1500 IV 01/10/19 03:00 01/15/19 02:59 01/13/19 04:20 Dextrose (Dextrose 50%) 25 ml Q30M PRN IV Hypoglycemia 01/09/19 18:00 02/06/19 19:59 Dextrose (Dextrose 50%) 50 ml Q30M PRN IV Hypoglycemia 01/09/19 18:00 02/06/19 19:59 Heparin Sodium (Porcine) (Heparin 5000 units/ml) 5,000 units EVERY 12 HOURS SUBQ 01/09/19 21:00 02/06/19 20:59 01/13/19 08:35 Insulin Aspart (NovoLOG) BEFORE MEALS AND HS SUBQ 01/09/19 21:00 02/07/19 11:29 01/13/19 06:40 Lorazepam (Ativan 2mg/ml 1ml) 1 mg Q4H PRN IV For Anxiety 01/09/19 18:00 01/16/19 17:59 01/12/19 11:33 Morphine Sulfate (Morphine Sulfate) 4 mg Q4H PRN IVP Moderate Pain (Pain Scale 4-6) 01/09/19 18:00 01/14/19 17:59 01/13/19 08:42 Ondansetron HCl (Zofran) 4 mg Q6H PRN IVP Nausea & Vomiting 01/09/19 18:00 02/06/19 17:59 Patient Own Medication (Patient's Own Med) 1 ea DAILY ORAL 01/12/19 17:00 02/11/19 16:59 01/13/19 08:33 Patient Own Medication (Patient's Own Med) 1 ea DAILY ORAL 01/12/19 17:00 02/11/19 16:59 01/13/19 08:33 Polyethylene Glycol (Miralax) 17 gm DAILYPRN PRN ORAL Constipation 01/09/19 18:00 02/06/19 17:59 Quetiapine Fumarate (SEROquel) 50 mg Q12HR ORAL 01/09/19 21:00 02/07/19 11:29 01/10/19 08:54 Temazepam (Restoril) 15 mg HSPRN PRN ORAL Insomnia 01/09/19 20:00 01/14/19 19:59 Trimethoprim/ Sulfamethoxazole (Bactrim-DS) 1 tab DAILY ORAL 01/12/19 15:30 01/17/19 09:01 01/13/19 08:34 Vancomycin HCl (Vanco rx to dose) 1 ea DAILY PRN MISC . 01/10/19 09:00 02/06/19 20:14 Vancomycin HCl 1 gm/Dextrose 275 ml @ 183.3 mls/ hr Q12HR@0400,1600 IVPB 01/10/19 04:00 01/15/19 03:59 01/13/19 04:20 Kelly Mcintosh MD Jan 13, 2019 12:01
--- NOTE | 2019-01-13 14:00 | NUR ---
DISCHARGED PLAN: LORI TINSLEY DISCUSSED DISCHARGE AT BEDSIDE WITH PATIENT PATIENT READY FOR DISCHARGE TO [facility] TRINA BURKS T: [phone] FOR NURSE TO NURSE REPORT ROOM# 10A SKILLED ATTEMPTED TO CALL SHI GUTIERRES (SISTER) TO INFORM OF DISCHARGE BUT NO ANSWER T:[phone] [facility] HAS BEEN ARRANGED FOR [id number] CONTROL PANEL BUILDER TIME
--- NOTE | 2019-01-13 14:39 | Infectious Diseases Prog Note ---
Assessment/Plan Assessment/Plan Abx: IV Vancomcyin 01/07- Cefepime 01/07- Bactrim DS daily Assessment: R knee pain, R leg cellulitis unlikely septic arthritis given exam(full ROM) 01/09 MRI Knee: No acute fracture or osteomyelitis. Moderate knee joint effusion. Mild LCL edema which may be sprain versus infection inflammation. Soft tissue edema. No discrete abscess. 01/09 CT LE: 3.1 x 2.4 x 1.2 cm air-fluid collection and soft tissue swelling anterior to the proximal tibial diaphysis, likely representing a small abscess. Adjacent subcutaneous stranding cellulitis. -Xray R tibia/fibula: Metallic foreign body in the lateral superficial soft tissues. No acute bony trauma -xray L tibi/fibula: Posterior soft tissue opacity, most likely a focus of dystrophic calcification, less likely a small foreign body. No other significant abnormality -R knee xray: No definite suprapatellar effusion. No acute fractures. No dislocations. Joint spaces are preserved -V. dupplex: no DVT -B/l foot xray: no acute process -01/10 I&D cx: CoNS Afebrile No leukocytosis -CXR: no acute findings HIV- Dx on 1985- currently on Symtuza and Tivicay -last HIV VL 40 and CD4 300s (per patient about 1.5 month ago) -has been on treatment for 30 years -01/09 CD4 158 Dm2 Hep C IVDA (meth abuse) -uDS + amphetamines Plan: DC on Bactrim DS BID and Keflex 500mg PO q6H for 4 more days. After completion of above, start Bactrim DS one tab daily for PCP PPX until CD4> 200 - Continue empiric IV Vancomycin and Cefepime #7 today -f/u cx -Monitor CBC/CMP, temperatures -continue wound care -Continue ARV (Symtuza and Tivicay) Thank you for this consultation. Will continue to follow along with you. Subjective Allergies: Coded Allergies: No Known Allergies (Unverified , 03/27/14) Subjective Afebrile. Reporting pain in his right leg Able to walk around the room Objective Vital Signs Last 24 Hour Vital Signs Date Time Temp Pulse Resp B/P (MAP) Pulse Ox O2 Delivery O2 Flow Rate FiO2 01/13/19 12:00 98.1 86 17 110/64 (79) 99 01/13/19 09:15 Room Air 01/13/19 09:12 97.4 01/13/19 08:26 79 20 96 Room Air 21 01/13/19 08:00 97.4 77 20 113/64 (80) 97 01/13/19 04:00 97.3 91 18 128/80 (96) 96 01/12/19 21:00 Room Air 01/12/19 20:00 97.4 82 19 122/74 (90) 97 01/12/19 19:48 88 18 95 Room Air 21 01/12/19 15:59 97.1 80 19 133/72 (92) 99 Height (Feet): 6 Height (Inches): 0.00 Weight (Pounds): 204 Objective Gen: NAD HEENT: anicteric sclera CV: RRR Resp: RRR Ext: s/p RLE I&D. dressing intact and dry. Neuro: awake. alert. interactive. Laboratory Tests Test 01/13/19 05:05 White Blood Count 3.9 K/UL (4.8-10.8) L Red Blood Count 4.04 M/UL (4.70-6.10) L Hemoglobin 12.2 G/DL (14.2-18.0) L Hematocrit 35.0 % (42.0-52.0) L Mean Corpuscular Volume 87 FL (80-99) Mean Corpuscular Hemoglobin 30.3 PG (27.0-31.0) Mean Corpuscular Hemoglobin Concent 34.9 G/DL (32.0-36.0) Red Cell Distribution Width 11.6 % (11.6-14.8) Platelet Count 264 K/UL (150-450) Mean Platelet Volume 4.4 FL (6.5-10.1) L Neutrophils (%) (Auto) 51.2 % (45.0-75.0) Lymphocytes (%) (Auto) 28.1 % (20.0-45.0) Monocytes (%) (Auto) 15.1 % (1.0-10.0) H Eosinophils (%) (Auto) 5.0 % (0.0-3.0) H Basophils (%) (Auto) 0.7 % (0.0-2.0) Erythrocyte Sedimentation Rate 50 MM/HR (0-20) H Sodium Level 138 MMOL/L (136-145) Potassium Level 4.4 MMOL/L (3.5-5.1) Chloride Level 102 MMOL/L (98-107) Carbon Dioxide Level 28 MMOL/L (21-32) Anion Gap 8 mmol/L (5-15) Blood Urea Nitrogen 17 mg/dL (7-18) Creatinine 1.2 MG/DL (0.55-1.30) Estimat Glomerular Filtration Rate > 60 mL/min (>60) Glucose Level 280 MG/DL (74-106) #H Calcium Level 9.2 MG/DL (8.5-10.1) Phosphorus Level 2.9 MG/DL (2.5-4.9) Magnesium Level 1.9 MG/DL (1.8-2.4) Total Bilirubin 0.3 MG/DL (0.2-1.0) Aspartate Amino Transf (AST/SGOT) 23 U/L (15-37) Alanine Aminotransferase (ALT/SGPT) 27 U/L (12-78) Alkaline Phosphatase 110 U/L (46-116) C-Reactive Protein, Quantitative 1.7 mg/dL (0.00-0.90) H Total Protein 7.4 G/DL (6.4-8.2) Albumin 2.5 G/DL (3.4-5.0) L Globulin 4.9 g/dL Albumin/Globulin Ratio 0.5 (1.0-2.7) L Current Medications Medications (Trade) Dose Ordered Sig/Naheed Route PRN Reason Start Time Stop Time Status Last Admin Dose Admin Acetaminophen (Tylenol) 650 mg Q4H PRN ORAL fever 01/09/19 18:00 02/06/19 17:59 Cefepime HCl 2 gm/ Dextrose 110 ml @ 220 mls/hr Q12HR@0300,1500 IV 01/10/19 03:00 01/15/19 02:59 01/13/19 04:20 Dextrose (Dextrose 50%) 25 ml Q30M PRN IV Hypoglycemia 01/09/19 18:00 02/06/19 19:59 Dextrose (Dextrose 50%) 50 ml Q30M PRN IV Hypoglycemia 01/09/19 18:00 02/06/19 19:59 Heparin Sodium (Porcine) (Heparin 5000 units/ml) 5,000 units EVERY 12 HOURS SUBQ 01/09/19 21:00 02/06/19 20:59 01/13/19 08:35 Insulin Aspart (NovoLOG) BEFORE MEALS AND HS SUBQ 01/09/19 21:00 02/07/19 11:29 01/13/19 12:12 Lorazepam (Ativan 2mg/ml 1ml) 1 mg Q4H PRN IV For Anxiety 01/09/19 18:00 01/16/19 17:59 01/12/19 11:33 Morphine Sulfate (Morphine Sulfate) 4 mg Q4H PRN IVP Moderate Pain (Pain Scale 4-6) 01/09/19 18:00 01/14/19 17:59 01/13/19 08:42 Ondansetron HCl (Zofran) 4 mg Q6H PRN IVP Nausea & Vomiting 01/09/19 18:00 02/06/19 17:59 Patient Own Medication (Patient's Own Med) 1 ea DAILY ORAL 01/12/19 17:00 02/11/19 16:59 01/13/19 08:33 Patient Own Medication (Patient's Own Med) 1 ea DAILY ORAL 01/12/19 17:00 02/11/19 16:59 01/13/19 08:33 Polyethylene Glycol (Miralax) 17 gm DAILYPRN PRN ORAL Constipation 01/09/19 18:00 02/06/19 17:59 Quetiapine Fumarate (SEROquel) 50 mg Q12HR ORAL 01/09/19 21:00 02/07/19 11:29 01/10/19 08:54 Temazepam (Restoril) 15 mg HSPRN PRN ORAL Insomnia 01/09/19 20:00 01/14/19 19:59 Trimethoprim/ Sulfamethoxazole (Bactrim-DS) 1 tab DAILY ORAL 01/12/19 15:30 01/17/19 09:01 01/13/19 08:34 Vancomycin HCl (Vanco rx to dose) 1 ea DAILY PRN MISC . 01/10/19 09:00 02/06/19 20:14 Vancomycin HCl 1 gm/Dextrose 275 ml @ 183.3 mls/ hr Q12HR@0400,1600 IVPB 01/10/19 04:00 01/15/19 03:59 01/13/19 04:20 Xenia Gonzales MD Jan 13, 2019 14:39
--- NOTE | 2019-01-13 15:19 | NUR ---
NURSE NOTES: Left message w/Dr. Gonzales's call center re: pt's D/C to see if MD would like to D/C pt w/abx. Will continue to monitor.
[2019-01-13] MEDS ORDERED: SYMTUZA 800-151 EACH PO (15:39)
[2019-01-13] MEDS ORDERED: TIVICAY50 MG ORAL (15:40)
[2019-01-13] MEDS ORDERED: ACETAMINOPHEN500 M5 ORAL (15:42)
[2019-01-13] MEDS ORDERED: QUETIAPINE FUM300 MG ORAL (15:50)
[2019-01-13] MEDS ORDERED: QUETIAPINE FUMA50 MG ORAL (15:52)
[2019-01-13] MEDS ORDERED: NOVOLOG100 UNITS1 (15:54)
[2019-01-13 16:00] VITALS: BP 109/78
[2019-01-13] MEDS ORDERED: CEPHALEXIN500 MG ORAL (16:00)
[2019-01-13] MEDS ORDERED: BACTRIM-DS1 EA ORAL ×2 (16:00→16:16)
--- NOTE | 2019-01-13 17:00 | NUR ---
NURSE NOTES: WOUND DRESSING RT LEG DONE WITH IODOFORM PACKING COVERED WITH 4X4 AND SECURED WITH PAPER TAPE.
--- NOTE | 2019-01-13 17:30 | NUR ---
NURSE NOTES: DISCHARGED TO [facility] VIA AMBULANCE IN STABLE CONDITION. TRANSFER PAPERS AND ORDERS SENT WITH PT. REPORT GIVEN TO FERNANDO SHETH.
--- NOTE | 2019-01-14 07:35 | Discharge Summary ---
Discharge Summary Discharge Summary _ DATE OF ADMISSION: 01/07/2019 DATE OF DISCHARGE: 01/13/2019i DISCHARGED BY: Dr. Chaudhary REASON FOR ADMISSION: 63-old male with past medical history significant for HIV, diabetes mellitus type 2, hepatitis C , status post treatment , currently in remission, history of IV drug abuse with methamphetamine, presented to emergency department complaining of the right leg redness and swelling. Patient noted to have severe track duke and abscess formation in the right leg. Patient had recent admission to [facility] (about 6 weeks ago), due to right leg infection and was treated with IV antibiotic. Patient admitted being homeless and was walking barefoot for the past 3 days. Laboratory work-up revealed no leukocytosis, hemoglobin 11.9 , hematocrit 25.1. Glucose 336. Stable renal parameters and electrolytes. Troponin negative. EKG revealed sinus rhythm , no acute ischemic changes. pro BNP 306. Stable LFT and lipase. Lactic acid 3.9. Urine toxicology screen was positive for amphetamine. Chest x-ray revealed no acute cardiopulmonary pathology . Tibia-fibula x-ray on the left revealed medial soft tissue opacity, most likely a focus of dystrophic calcification, less likely a small foreign body. No other acute significant abnormality. Tibia-fibula x-ray of the right leg revealed metallic foreign body in the lateral superficial soft tissue, no acute bony trauma. Venous duplex bilateral lower extremity revealed no evidence of acute DVT. X-ray of the right knee was negative for any acute findings. X-ray of bilateral foot revealed no acute bony trauma . Patient subsequently admitted to medical surgical floor for further management of cellulitis and possible abscess, CONSULTANTS: hospitalist Dr. Mcintosh ID specialist Dr. Parker surgery Dr. Bruce [facility] COURSE: Patient admitted and started on IV antibiotics as per ID specialist recommendation. Blood cultures were negative. Wound culture revealed Staph epidermidis. Surgeon seen and evaluated patient. Patient subsequently undergone CT scan of the tibia/fibula , which revealed 3.1 x 2.4 x 1.2 cm air-fluid collection and soft tissue swelling anterior to the proximal tibial diaphysis, likely representing a small abscess. Adjacent subcutaneous stranding cellulitis. MRI of the right knee revealed no acute fracture or osteomyelitis , but showed moderate right knee effusion and mild LCL edema , which may be sprain versus infection versus inflammation ; no discrete abscess. Patient remained afebrile and leukopenic with WBC in 3-4 range. Patient undergone incision and drainage of right leg abscess at the bedside. Patient tolerated procedure well. Wound care further provided per surgeon recommendation. Continue wound care at the facility. Infectious disease specialist closely followed. Based on results of the MRI and CT scans and given clinical exam, unlikely septic arthritis. Patient was diagnosed with HIV in 1985. Per patient , last VL was 40 and CD4 count was in 300 range ( about 1.5 month ago). On 01/09 CD4 158. Patient was on Symtuza and Tivicay. Continue ART therapy . ID recommended patient to be discharged on Bactrim DS twice daily and Keflex 500 mg p.o. every 6 hours for 4 more days. After completion of the above , patient need to be started on Bactrim DS 1 tablet daily for PCP prophylaxis until CD4 above 200. Patient completed empiric vancomycin and cefepime for 7 days while in the hospital. Blood sugar was managed with sliding scale of insulin. Hemoglobin A1c 7.3. Patient was counseled on compliance with anti-glycemic medication regimen . Diabetic teaching provided. Renal parameters and electrolytes were closely monitored. Electrolytes corrected as needed , and nephrotoxins were avoided. DVT prophylaxis provided. Psych medications continued. Patient clinically stabilized. Patient was counseled on abstinence from illicit street drugs. Placement was arranged to the longterm facility. Patient was stable for transfer. 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 DISCHARGE INSTRUCTIONS: Patient was discharged to the longterm facility. Follow up with medical doctor at the facility. Tatyana Joe NP Jan 14, 2019 07:35
== END 2019-01-13 17:30 | DRG 603 ==
LOC: EMR 13:30 → 2E 14:24 → EDBEDREQ 18:18 → 3E 01-09 17:36
PROC: 0Y9H3ZZ Drainage of Right Lower Leg, Percutaneous Approach (ICD-10-PCS; principal; 2019-01-10)
DX: L02.415 Cutaneous abscess of right lower limb (principal); B20 Human immunodeficiency virus [HIV] disease; L03.115 Cellulitis of right lower limb; E86.0 Dehydration; F15.10 Other stimulant abuse, uncomplicated; Z23 Encounter for immunization; F17.200 Nicotine dependence, unspecified, uncomplicated; Z59.0 Homelessness; E11.65 Type 2 diabetes mellitus with hyperglycemia; F60.4 Histrionic personality disorder; Z86.19 Personal history of other infectious and parasitic diseases; Z91.14 Patient's other noncompliance with medication regimen; M79.5 Residual foreign body in soft tissue; I80.9 Phlebitis and thrombophlebitis of unspecified site
CPT/HCPCS: 36415; 71045; 80048; 80053; 80202; 80307; 81003; 82550; 82553; 82962; 83036; 83605; 83735; 83880; 84100; 84484; 85025; 85610; 85651; 85730; 86140; 86360; 86850; 86900; 86901; 87040; 87070; 87081; 87181; 87205; 90471; 90715; 93005; 93970; 94664; 96365; 96366; 96368; 96375; 99291; J1815; J7030